=== PATIENT | female | born 1940 | race Caucasian/White ===

== ENCOUNTER 2018-01-23 07:25 | Day surgery (SDC) | payer OTHER ==
--- NOTE | 2018-01-20 11:49 | RAD REPORT ---
EXAM DESCRIPTION: RAD - Chest Single View - 01/20/2018 11:44 am CLINICAL HISTORY: Coronary artery disease Chest pain. COMPARISON: Chest Single View dated 02/18/2017; Chest Pa And Lat (2 Views) dated 11/21/2015 FINDINGS: Portable technique limits examination quality. The lungs are grossly clear. The heart is normal in size. No displaced fractures. IMPRESSION: No acute intrathoracic process suspected.
[2018-01-20 12:07] LABS: Absolute Lymphocytes (CBC) 1.5 K/uL (0.7-4.9); Absolute Monocytes 0.6 K/uL (0.1-1.3); Absolute Neutrophil 5.5 K/uL (1.8-8.0); Basophils % 1.1 % (0-1.3); Eosinophils % 5.6 % (0-4.4); Hematocrit 41.2 % (36.0-45.0); Lymphocytes % 18.7 % (15.3-44.8); MCH 30.3 pg (27.0-35.0); MCV 92.2 fL (80-100); MPV 9.2 fL (7.6-11.3); Monocytes % 6.8 % (3.3-12.3); RBC Red Blood Cell Count 4.47 M/uL (3.86-4.86)
[2018-01-20 12:16] LABS: Protime INR 1.01
[2018-01-20 12:32] LABS: Potassium 3.6 mmol/L (3.5-5.1)
[~2018-01-23 07:25] MED LIST: HEPA 1000U/500MLS 2,000 UNIT/1,000 ML BAG IV ONE; LIDOCAINE 1% 20 ML MDV ONE
--- OUTSIDE RECORDS SUMMARY | 2018-01-23 07:26 | XMS REPORT ---
:1940 Author Organization [employer] Care Team Providers Name Role Phone Jaeger, Dora Provider Role Unavailable Allergies, Adverse Reactions, Alerts Substance Reaction Event Type Lisinopril cough, fatique Drug Allergy Problems Problem Type Condition Code Onset Dates Condition Status Assessment Medicare annual wellness visit, Z00.00 Active initial Problem Obesity, unspecified E66.9 Active Assessment Encounter for gynecological Z01.419 Active examination Problem History of gout Z87.39 Active Problem Hyperlipidemia E78.5 Active Problem Pityriasis rosea L42 Active Problem Stented coronary artery Z95.5 Active Problem CAD (coronary artery disease), I25.10 Active kaw coronary artery Problem Allergic rhinitis J30.9 Active Problem HTN (hypertension) I10 Active Medications Medication Code Code Instructions Start End Status Dosage System Date Date Toprol XL [facility] 08352910174 100 MG Orally Active 1 tablet Once a day Norvasc [facility] 31889787418 5 MG Orally Active 1 tablet Once a day Zyrtec Allergy ND 65860008800 10 MG Orally October Active 1 tablet Once a day 2017 Triamcinolone [facility] 34340483535 0.1 % October Active 1 application Acetonide Externally 11, to affected Twice a day 2017 area Xanax ND 31389335349 0.25 MG Orally Active 1 tablet Twice a day Tamiflu ND 74352460247 75 MG Orally Aug 29, Active 1 capsule one tab once a 2018 day Plavix ND 53511434007 75 MG Orally Active 1 tablet Once a day Lipitor ND 51479810154 80 MG Orally Active 1 tablet Once a day Results No Known Results Summary Purpose [employer] Submission
[2018-01-23] MEDS ORDERED: NA CHLORIDE 0.9% 500 ML ONE (08:18)
[2018-01-23] MEDS ORDERED: HEPARIN 5000 UNIT/ML 1 ML VIAL ONE (08:29)
[2018-01-23] MEDS ORDERED: NICARDIPINE HCL 25 MG/10 ML IV ONE (08:29)
[2018-01-23] MEDS ORDERED: ATROPINE SULF 1 MG/10 ML SYR IV ONE (08:30)
[2018-01-23] MEDS ORDERED: NITROGLYCERIN/D5W 25 MG/250 ML BTL IV ONE (08:30)
[2018-01-23] MEDS ORDERED: MIDAZOLAM HCL 2 MG/2 ML INJ ONE ×2 (08:30→08:52)
[2018-01-23] MEDS ORDERED: NA CHLORIDE 0.9% 0 ML ONE (08:30)
[2018-01-23] MEDS ORDERED: FENTANYL CITR 100 MCG/2 ML ONE (08:31)
--- NOTE | 2018-01-23 19:59 | OP ---
Surgeon: Eduardo Hsieh MD Primary Care Physician: Dora Jaeger D.O. Procedure: Left heart catheterization and left ventricular angiography. Findings: The patient's coronary arteries are free of any stenosis. She has minor coronary plaque. She has a mid LAD stent placed in 2005 that is widely patent. Her ejection fraction is normal. All of her pressures were normal. There is no wall motion abnormality. End-diastolic pressure was 1. Procedure In Detail: The patient had symptoms consistent with CAD, history of a stent, and we were c onsidering that stress testing was misleading us and she really had a new stenosis. She was brought to the cardiac clinical laboratory technologist in a fasting state, sedated with Versed and fentanyl, and prepared and draped in the usual sterile fashion. Right radial approach was used. A 1% lidocaine was used to anestheti ze the tissues around the right radial artery. The artery was entered using a 21-gauge needle. A 0. 021 inch diameter guidewire was used to cannulate the artery. Modified Seldinger technique allowed u s to put a 6-[place] radial sheath in place. It was flushed and the radial cocktail was given consist ing of nicardipine, heparin, and nitroglycerin. We used a Terumo TIG catheter and a [place] [employer] Artimi rad ius J-tip Glidewire to guide it into the ascending aorta. We used the same TIG catheter to angiogram the right and left coronaries in multiple views and left ventricle. At the end of the procedure, th e catheter was withdrawn over a J-wire. The sheath was flushed, removed, and the arteriotomy closed using a TR band. No complications from the procedure. Estimated blood loss 5 cc. physical therapist assistant, Eda Pagan, and our plan is to initiate cardiac rehab for intense physical therapy to re-establi sh her exertional tolerance. SH/MODL Voice ID: [id number] Report ID: [id number]
== END 2018-01-23 12:11 | disposition home or self-care (01) ==
LOC: CCL 07:25
PROVIDERS: ATTEND Internal Medicine
DX: I25.10 Atherosclerotic heart disease of native coronary artery without angina pectoris (principal); I10 Essential (primary) hypertension; E78.2 Mixed hyperlipidemia; Z95.5 Presence of coronary angioplasty implant and graft; Z88.8 Allergy status to other drugs, medicaments and biological substances
CPT/HCPCS: 36415; 71045; 80048; 85025; 85610; 85730; 93458; C1893; J1644; J2250; J3010; J0583

== ENCOUNTER 2020-10-30 10:52 | Emergency (ER) | payer OTHER ==
--- OUTSIDE RECORDS SUMMARY | 2020-10-30 10:55 | XMS REPORT | Continuity of Care Document ---
:1940 Author Organization [facility] Address [address] [place] [address] Care Team Providers Name Role Phone Unavailable Unavailable Unavailable Problems Condition Condition Condition Status Onset Resolution Last Treating Co mments Source Name Details Category Date Date Treatment Clinician Date Hyperlipid Hyperlipid Problem Active [facility] Pityriasis Pityriasis Problem Active [facility]a [facility] Stented Stented Problem Active [facility] CAD CAD Problem Active [facility] (coronary (coronary [facility] - artery artery Memoria disease), disease), [place] [facility] coronary ent artery artery Clinics Allergic Allergic Problem Active [facility] rhinitis [facility]initis [facility] HTN HTN Problem Active [facility] (hypertens (hypertens Janice kes - ion) ion) [facility] Obesity, Obesity, Problem Active [facility] unspecifie unspecifie Janice kes - d d [facility] History of History of Problem Active [facility] gout gout [facility] Allergies, Adverse Reactions, Alerts Allergy Allergy Status Severity Reaction(s) Onset Inactive Treating Comm ents Source Name Type Date Date Clinician Lisinopr Adverse Active cough[facility] Reaction fatique [facility] Medications Ordered Filled Start Stop Current Ordering Indication Dosage Frequency Signature Comments Components Source Medication Medication Date Date Medication? Clinician (SIG) Name Name Triamcinolo Triamcinolo Yes Na Jaeger [address] ne ne applicatio [facility] Acetonide Acetonide n to Mem[facility] ia affected l area [facility] Procedures This patient has no known procedures. Encounters Start End Encounter Admission Attending Care Care Encounter Source Date/Time Date/Time Type Type Clinicians Facility Department ID 2018-09-19 2018-09-19 Outpatient Rosy Gallegost [id number] [facility] [address] 09:55[facility]00 09:55:00 t [facility]ple [facility] 2017-11-30 2017-11-30 Outpatient Rosy Wilson [id number] [facility] [address] 09[facility]00[facility]00 09:00:00 Couple [facility] Clinics Results This patient has no known results.
[2020-10-30 11:14] LABS: Urine Blood Negative (Negative); Urine Glucose Negative (Negative); Urine Protein 1+ (Negative); Urine Specific Gravity 1.025 (1.005-1.030)
[2020-10-30 11:39] LABS: Calcium Oxalate Crystals- Ur PRESENT (NONE SEEN); Urine Bacteria <20 /HPF (<20); Urine RBC <5 /HPF (NONE SEEN)
[2020-10-30] MEDS ORDERED: TRAMADOL HCL 50 MG TAB ONE (11:46)
[2020-10-30] MEDS ORDERED: ONDANSETRON 4 MG (ODT) TAB ONE (12:02)
--- NOTE | 2020-10-30 12:12 | RAD REPORT ---
EXAM DESCRIPTION: CT - Stone Protocol - 10/30/2020 11:34 am CLINICAL HISTORY: Abdominal pain./back pain COMPARISON: 2017 TECHNIQUE: Computed axial tomography of the abdomen pelvis was obtained without oral or IV contrast. Lack of IV and oral contrast limits evaluation of solid organs, bowel, and vessels. Coronal reformat val images were obtained and reviewed. All CT scans are performed using dose optimization technique as appropriate and may include automated exposure control or mA/KV adjustment according to patient size. FINDINGS: A renal calculus is not seen. An ureteral calculus is not noted. A bladder calculus is not present. Small right renal cyst The liver, spleen, pancreas and adrenals appear grossly normal Small polyp versus gallstone There is no evidence of diverticulitis. The appendix appears normal. Hysterectomy. 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
--- NOTE | 2020-10-30 13:05 | ER ---
Nurse's Notes [facility] Name: Dhara Miranda Age: 80 yrs Sex: Female : 1940 Arrival Date: 10/30/2020 Time: 10:55 Bed 15 Private MD: Dora Jaeger Diagnosis: Sciatica, right side Presentation: 10/30 11:17 Chief complaint: Patient states: R mid back/flank pain started this morning. Pain is ca1 worse with ambulation and repositioning. Pain is sharp and non-radiating. Coronavirus screen: Client denies travel out of the [place] in the last 14 days. At this time, the client does not indicate any symptoms associated with coronavirus-19. Ebola Screen: Patient negative for fever greater than or equal to 101.5 degrees Fahrenheit, and additional compatible Ebola Virus Disease symptoms Patient denies exposure to infectious person. Patient denies travel to an Ebola-affected area in the 21 days before illness onset. No symptoms or risks identified at this time. Initial Sepsis Screen: Does the patient meet any 2 criteria? No. Patient's initial sepsis screen is negative. Does the patient have a suspected source of infection? No. Patient's initial sepsis screen is negative. Risk Assessment: Do you want to hurt yourself or someone else? Patient reports no desire to harm self or others. Onset of symptoms was October 30, 2020. 11:17 Method Of Arrival: Wheelchair ca1 11:17 Acuity: ANN 3 ca1 Triage Assessment: 13:18 General: Appears in no apparent distress. Behavior is calm, cooperative, appropriate bw for age. Historical: - Allergies: 11:22 Lisinopril; ca1 - PMHx: 11:22 cardiac stent; Hyperlipidemia; Hypertension; Myocardial infarction; ca1 - PSHx: 11:22 Hysterectomy; ca1 - Immunization history:: Adult Immunizations up to date. - Social history:: Smoking status: Patient denies any tobacco usage or history of. Screenin: Abuse screen: Denies threats or abuse. Nutritional screening: No deficits noted. bw Tuberculosis screening: No symptoms or risk factors identified. Fall Risk None identified. Assessment: 11:29 Reassessment: Patient appears in no apparent distress at this time. Patient and/or bw family updated on plan of care and expected duration. Pain level reassessed. Patient is alert, oriented x 3, equal unlabored respirations, skin warm/dry/pink. Pain: Complains of pain in pain has been in lower back but denies pain at this time. 12:47 Reassessment: Patient appears in no apparent distress at this time. Patient and/or bw family updated on plan of care and expected duration. Pain level reassessed. Patient is alert, oriented x 3, equal unlabored respirations, skin warm/dry/pink. Vital Signs: 11:17 BP 137 / 78; Pulse 72; Resp 16 S; Temp 97.6(TE); Pulse Ox 100% on R/A; Weight 97.52 kg ca1 (R); Height 5 ft. 5 in. (165.10 cm) (R); Pain 8/10; 12:47 BP 116 / 92; Pulse 51; Resp 18; Pulse Ox 93% on R/A; bw 11:17 Body Mass Index 35.78 (97.52 kg, 165.10 cm) ca1 ED Course: 10:55 Patient arrived in ED. rg4 10:55 Dora Jaeger MD is Private Physician. rg4 11:04 [facility]. cp 11:04 Isaiah De Dios MD is Attending Physician. cp 11:13 Estela Vernon RN is Primary Nurse. bw 11:16 Urine collected: clean catch specimen, cloudy. mh5 11:17 Patient has correct armband on for positive identification. Placed in gown. Bed in low mh5 position. Call light in reach. Side rails up X 1. Warm blanket given. athletic monitor on. Pulse ox on. NIBP on. 11:22 Triage completed. ca1 11:22 Urine Microscopic Only Sent. mh5 11:22 Arm band placed on right wrist. ca1 11:29 No provider procedures requiring assistance completed. Patient did not have IV access bw during this emergency room visit. 11:33 CT Stone Protocol In Process Unspecified. EDMS Administered Medications: 12:05 Drug: UltRAM 50 mg Route: PO; bw 13:19 Follow up: Response: No adverse reaction bw 12:05 Drug: Zofran (Ondansetron) 4 mg Route: PO; bw 13:18 Follow up: Response: No adverse reaction; Nausea is decreased bw Outcome: 13:04 Discharge ordered by . cp 13:18 Discharged to home via wheelchair. 13:18 Condition: stable 13:18 Discharge instructions given to patient, family. 13:37 Patient left the ED. bw Addendum: 11/11/2020 11:07 Addendum: Culture Results: Positive urine culture. Patient was not prescribed a a5 antibiotics at discharge. Report given to GERMAINE for further evaluation and then to specimen technician for follow up with patient. Phone call Attempt #1 left voice mail. Signatures: Dispatcher [employer] Chelita Ellington RN RN aa5 Keven Spangler PA PA cp Garcia, Rubi rg4 Vandana Trinidad 5 Mayra Medley RN RN [facility] Estela Vernon RN RN
--- NOTE | 2020-10-30 13:05 | EDPHYS ---
Physician Documentation [facility] Name: Dhara Miranda Age: 80 yrs Sex: Female : 1940 Arrival Date: 10/30/2020 Time: 10:55 Bed 15 Private MD: Dora Jaeger ED Physician Isaiah De Dios HPI: 10/30 11:30 This 80 yrs old Female presents to ER via Wheelchair with complaints of Low cp Back Pain. 11:30 The patient presents with pain that is acute, with no known mechanism of injury. cp Historical: - Allergies: 11:22 Lisinopril; ca1 - PMHx: 11:22 cardiac stent; Hyperlipidemia; Hypertension; Myocardial infarction; ca1 - PSHx: 11:22 Hysterectomy; ca1 - Immunization history:: Adult Immunizations up to date. - Social history:: Smoking status: Patient denies any tobacco usage or history of. ROS: 11:35 Constitutional: Negative for body aches, chills, fever, poor PO intake. cp 11:35 Eyes: Negative for injury, pain, redness, and discharge. cp 11:35 Cardiovascular: Negative for chest pain. 11:35 Respiratory: Negative for cough, shortness of breath, wheezing. 11:35 Abdomen/GI: Negative for abdominal pain, nausea, vomiting, and diarrhea. 11:35 Back: Positive for pain at rest, pain with movement, of the right upper buttock. 11:35 : Negative for pelvic pain, flank pain. 11:35 Skin: Negative for rash. 11:35 Neuro: Negative for dizziness, numbness, tingling, weakness. 11:35 All other systems are negative. Exam: 12:00 ECG was reviewed by the Attending Physician. cp 12:05 Constitutional: The patient appears in no acute distress, alert, awake, non-toxic, well cp developed, well nourished, obese. 12:05 Head/Face: Normocephalic, atraumatic. cp 12:05 Abdomen/GI: Inspection: abdomen appears normal, Palpation: abdomen is soft and non-tender, in all quadrants. 12:05 Back: pain, that is mild, of the right upper buttock. Vital Signs: 11:17 BP 137 / 78; Pulse 72; Resp 16 S; Temp 97.6(TE); Pulse Ox 100% on R/A; Weight 97.52 kg ca1 (R); Height 5 ft. 5 in. (165.10 cm) (R); Pain 8/10; 12:47 BP 116 / 92; Pulse 51; Resp 18; Pulse Ox 93% on R/A; bw 11:17 Body Mass Index 35.78 (97.52 kg, 165.10 cm) ca1 MDM: 11:07 Patient medically screened. cp 13:04 Data reviewed: vital signs, nurses notes, lab test result(s), radiologic studies, CT cp scan. 10/30 11:13 Order name: Urine Dipstick-Ancillary; Complete Time: 11:18 EDMS 10/30 12:07 Interpretation: Normal except: UPROT 1+; UESTR Trace. cp 10/30 11:19 Order name: Urine Microscopic Only; Complete Time: 12:07 cp 10/30 12:07 Interpretation: Normal except: SQEPI 10-20. cp 10/30 11:19 Order name: CT Stone Protocol; Complete Time: 12:39 cp 10/30 11:40 Order name: Urine Culture EDMS EC:00 Rate is 61 beats/min. Rhythm is regular. [place] interval is normal. QRS interval is normal. cp QT interval is normal. T waves are Inverted in lead aVR. Interpreted by me. Reviewed by me. Administered Medications: 12:05 Drug: UltRAM 50 mg Route: PO; bw 13:19 Follow up: Response: No adverse reaction bw 12:05 Drug: Zofran (Ondansetron) 4 mg Route: PO; bw 13:18 Follow up: Response: No adverse reaction; Nausea is decreased bw Disposition: 13:40 Co-signature as Attending Physician, Isaiah De Dios MD I agree with the assessment and kdr plan of care. Disposition: 10/30/20 13:04 Discharged to Home. Impression: Sciatica, right side. - Condition is Stable. - Discharge Instructions: Sciatica, Back Exercises. - Prescriptions for Ultracet 37.5- 325 mg Oral Tablet - take 1 tablet by ORAL route every 8-12 hours - for up to 5 days; do not exceed 8 tablets per day.; 20 tablet. Medrol (Wilder) 4 mg Oral Tablets, Dose Pack - take 1 tablet by ORAL route as directed - follow package instructions; 1 packet. - Medication Reconciliation Form, Thank You Letter, Antibiotic Education, Prescription Opioid Use form. - Follow up: Private Physician; When: 1 - 2 days; Reason: Recheck today's complaints. - Problem is new. - Symptoms have improved. Signatures: Dispatcher [employer] EDMS Isaiah De Dios MD MD [facility] Keven Spangler PA PA cp Mayra Medley RN RN [facility] Estela Vernon RN RN Corrections: (The following items were deleted from the chart) 13:37 13:04 10/30/2020 13:04 Discharged to Home. Impression: Sciatica, right side. Condition bw is Stable. Forms are Medication Reconciliation Form, Thank You Letter, Antibiotic Education, Prescription Opioid Use. Follow up: Private Physician; When: 1 - 2 days; Reason: Recheck today's complaints. Problem is new. Symptoms have improved. cp
[2020-10-31 03:47] VITALS: BP 116/92; O2SAT 93
== END 2020-10-30 13:37 | disposition home or self-care (01) ==
LOC: ER 10:52
DX: M54.31 Sciatica, right side (principal); I10 Essential (primary) hypertension; Z95.818 Presence of other cardiac implants and grafts; Z88.8 Allergy status to other drugs, medicaments and biological substances
CPT/HCPCS: 74176; 76377; 81003; 81015; 87077; 87086; 87088; 87186; 93005; 99284

== ENCOUNTER 2022-08-20 08:35 | Inpatient (IN) | payer OTHER ==
--- OUTSIDE RECORDS SUMMARY | 2022-08-20 08:39 | XMS REPORT | Continuity of Care Document ---
:1940 Author Organization [facility] Address [address] [place] [address] Care Team Providers Name Role Phone Dora Jaeger Attending Clinician Unavailable Problems Condition Condition Condition Status Onset Resolution Last Treating Co mments Source Name Details Category Date Date Treatment Clinician Date History of History of Problem Active C ommon gout gout [facility] Hyperlipid Hyperlipid Problem Active C ommon emia emia [facility] Pityriasis Pityriasis Problem Active C ommon rosea rosea [facility] Stented Stented Problem Active Common coronary coronary [facility] artery artery [facility] CAD CAD Problem Active Common (coronary (coronary Spir it artery artery [facility] disease), disease), [facility] coronary coronary [place] artery artery [place] Allergic Allergic Problem Active Commo n rhinitis rhinitis [facility] HTN HTN Problem Active Common (hypertens (hypertens Sp negriot ion) ion) [facility] Obesity, Obesity, Problem Active Commo n unspecifie unspecifie Sp negrito d d [facility] Allergies, Adverse Reactions, Alerts Allergy Allergy Status Severity Reaction(s) Onset Inactive Treating Comm ents Source Name Type Date Date Clinician Lisinopr Adverse Active cough, Common il Reaction fatique [facility] Medications Ordered Filled Start Stop Current Ordering Indication Dosage Frequency Signature Comments Components Source Medication Medication Date Date Medication? Clinician (SIG) Name Name Triamcinolo Triamcinolo Yes Dora Jaeger 1 Common ne ne applicatio Spirit Acetonide Acetonide n to - [facility] Procedures This patient has no known procedures. Encounters Start End Encounter Admission Attending Care Care Encounter Source Date/Time Date/Time Type Type Clinicians Facility Department ID 2021-08-26 [facility] [id number] Common 12:23:30 [id number] [facility] 2018-09-19 2018-09-19 Outpatient Rosy Wilson [id number] Common 09:55:00 09:55:00 t [employer] [address] [facility] 2017-11-30 2017-11-30 Outpatient Rosy Wilson [id number] Common 09:00:00 09:00:00 t [employer] [address] [facility] Results This patient has no known results.
[2022-08-20] MEDS ORDERED: Ringers Lactate 1,000 ML IV ONE (09:17)
--- NOTE | 2022-08-20 09:27 | RAD REPORT ---
EXAM DESCRIPTION: CT - Head Brain Wo Cont - 08/20/2022 9:10 am CLINICAL HISTORY: Syncope COMPARISON: 2016 TECHNIQUE: Computed axial tomography of the head was obtained. IV contrast was not requested. All CT scans are performed using dose optimization technique as appropriate and may include automated exposure control or mA/KV adjustment according to patient size. FINDINGS: An intracranial bleed is not seen . The ventricles are normal in caliber. Small low-density area right caudate probably an old lacunar infarction. No extra-axial fluid collection is noted. Fluid within the sinuses/ mastoids is not seen. IMPRESSION: No acute intracranial abnormality is seen. If patient's symptoms persist MRI of the bra in would be recommended.
--- NOTE | 2022-08-20 09:39 | RAD REPORT ---
EXAM DESCRIPTION: CT - Pelvis Wo Cont - 08/20/2022 9:21 am CLINICAL HISTORY: Pelvic pain status post fall COMPARISON: None. TECHNIQUE: Computed axial tomography of the pelvis was obtained. Coronal and sagittal reconstruction performed All CT scans are performed using dose optimization technique as appropriate and may include automated exposure control or mA/KV adjustment according to patient size. FINDINGS: No fracture or dislocation is seen. Moderate osteoarthritis right hip. Mild osteoarthritis left hip. Muscles are normal size and density. A subcutaneous contusion is not noted No significant joint effusion IMPRESSION: No fracture seen If patient continues to have symptoms to suggest an occult fracture MRI would be recommended
[2022-08-20 09:43] LABS: Protime INR 1.12
--- NOTE | 2022-08-20 09:49 | RAD REPORT ---
EXAM DESCRIPTION: Joanne Single View08/20/2022 9:35 am CLINICAL HISTORY: Hypertensive/bradycardia COMPARISON: 2016 FINDINGS: The lungs appear clear of acute infiltrate. The heart is borderline enlarged IMPRESSION: No acute abnormalities displayed
[2022-08-20 09:59] LABS: Albumin 2.6 g/dL (3.4-5.0); Bilirubin Direct 0.1 mg/dL (0-0.2); Bilirubin Total 0.3 mg/dL (0.2-1.0); Magnesium 2.2 mg/dL (1.6-2.4); Potassium 4.5 mmol/L (3.5-5.1); Protein, Total 5.4 g/dL (6.4-8.2); Troponin High Sensitivity 12.3 pg/mL (<58.9)
[2022-08-20 10:20] LABS: SARS-COV-2 RT PCR NEGATIVE (NEGATIVE)
[2022-08-20 10:30] LABS: Absolute Lymphocytes (CBC) 1.7 K/uL (0.7-4.9); Hematocrit 36.7 % (36.0-45.0); Lymphocytes % 13.1 % (15.3-44.8); MCV 93.5 fL (80-100); MPV 8.9 fL (7.6-11.3); RBC Red Blood Cell Count 3.92 M/uL (3.86-4.86)
[2022-08-20 10:56] LABS: Urine Blood Negative (Negative); Urine Glucose Negative (Negative); Urine Protein Negative (Negative); Urine Specific Gravity <=1.005 (1.005-1.030); Urine pH 5.5 (5.0-7.0)
[2022-08-20 11:07] LABS: Urine Bacteria <20 /HPF (<20); Urine RBC <5 /HPF (None Seen)
[2022-08-20] MEDS ORDERED: FENTANYL CITR 100 MCG/2 ML ONE (11:35)
[2022-08-20] MEDS ORDERED: NA CHLORIDE 0.9% 1,000 ML ONE (11:43)
--- NOTE | 2022-08-20 11:49 | ER ---
Nurse's Notes [facility] Name: Dhara Miranda Age: 82 yrs Sex: Female : 1940 Arrival Date: 08/20/2022 Time: 08:39 Bed 4 Private MD: Diagnosis: Syncope Near;Acute Kidney Injury;Dehydration;Hypocalcemia Presentation: 08/20 09:04 Chief complaint: Patient states: she has been having issues with sciatica for a few ap3 weeks now, and this morning the pain was so bad that when she went to get up she just "fell out". EMS states that when they arrived the patient was hypotensive and bradycardic. EMS states their initial vials were heart rate of 42, blood pressure of 83/58, and the patient was 88% on room air. EMS placed the patient on 2 liters nasal canula, started an IV in the patients right wrist, and administered 1mg atropine as well as a liter of NS. Coronavirus screen: At this time, the client does not indicate any symptoms associated with coronavirus-19. Ebola Screen: No symptoms or risks identified at this time. Initial Sepsis Screen: Does the patient meet any 2 criteria? Mean Arterial Pressure (MAP) < 65. Does the patient have a suspected source of infection? No. Patient's initial sepsis screen is negative. Risk Assessment: Do you want to hurt yourself or someone else? Patient reports no desire to harm self or others. Onset of symptoms was August 20, 2022. 09:04 Method Of Arrival: EMS: [facility] ap3 09:04 Acuity: ANN 2 ap3 Triage Assessment: 09:09 General: Appears comfortable, obese, Behavior is calm, cooperative. Pain: Complains of ap3 pain in right leg and right hip. Neuro: Level of Consciousness is awake, obeys commands, Oriented to person, place, time, situation, Speech is normal. Cardiovascular: Patient's skin is warm and dry. Respiratory: Airway is patent Respiratory effort is even, unlabored, Respiratory pattern is regular, symmetrical. Historical: - Allergies: 09:08 Lisinopril; ap3 - PMHx: 09:08 cardiac stent; Hyperlipidemia; Hypertension; Myocardial infarction; ap3 - Immunization history:: Client reports having NOT received the Covid vaccine. Flu vaccine is not up to date. - Social history:: Smoking status: Patient denies any tobacco usage or history of. Screenin:09 [facility] ED Fall Risk Assessment (Adult) History of falling in the last 3 months, ap3 including since admission Yes- fall prone (multiple falls) (3 pts) Confusion or Disorientation No (0 pts) Intoxicated or Sedated No (0 pts) Impaired Gait Yes (1 pt) Mobility Assist Device Used Yes (1 pt) Altered Elimination No (0 pt). Abuse screen: Denies threats or abuse. Nutritional screening: No deficits noted. Tuberculosis screening: No symptoms or risk factors identified. Assessment: 11:38 Pain: Complains of pain in right hip Pain currently is 10 out of 10 on a pain scale. ap3 12:43 Reassessment: Nurse attempted report. was informed they would call me back. ap3 12:52 Reassessment: report called to ALISSON Roach. ap3 Vital Signs: 09:03 BP 98 / 53 (man/); Pulse 52; Pulse Ox 100% on 2 lpm NC; Weight 99.79 kg; Height 5 ft. 5 ap3 in. (165.10 cm); 09:03 Temp 98.6(O); ss 10:05 BP 118 / 58; Pulse 52; Pulse Ox 98% on 2 lpm NC; ap3 11:28 Resp 19; ap3 11:38 BP 124 / 84; Pulse 52; Resp 19; Pulse Ox 100% ; ap3 09:03 Body Mass Index 36.61 (99.79 kg, 165.10 cm) ap3 ED Course: 08:39 Patient arrived in ED. eb 08:45 Raj Perez DO is Attending Physician. ms3 08:45 Dieter Mckinney PA is PHCP. ms3 08:52 Rere Landry, ALISSON is Primary Nurse. ap3 09:08 Triage completed. ap3 09:10 Arm band placed on left wrist. ap3 09:10 Patient has correct armband on for positive identification. Bed in low position. Call ap3 light in reach. Side rails up X2. Adult w/ patient. traffic monitor specialist on. Pulse ox on. NIBP on. Door closed. Noise minimized. 09:12 CT Head Brain wo Cont In Process Unspecified. EDMS 09:[address] In Process Unspecified. EDMS 09:36 Inserted saline lock: 20 gauge in left antecubital area, using aseptic technique. Blood ap3 collected. 09:37 XRAY Chest (1 view) In Process Unspecified. EDMS 10:54 Urine collected: clean catch specimen, clear, Amount Voided: 650mL. ss 11:47 Simone Verma MD is Hospitalizing Provider. kaya 12:56 No provider procedures requiring assistance completed. Patient admitted, IV remains in ap3 place. Administered Medications: 09:36 Drug: Lactated Ringers Solution 1000 ml Route: IV; Rate: 1000 ml/hr; Site: left ap3 antecubital; 11:38 Follow up: IV Status: Completed infusion; IV Intake: 1000ml ap3 11:38 Drug: fentaNYL (PF) 25 mcg Route: IVP; Site: left antecubital; ap3 12:36 Follow up: Response: No adverse reaction; Pain is decreased ap3 Medication: 09:10 VIS not applicable for this client. ap3 Intake: 11:38 IV: 1000ml; Total: 1000ml. ap3 Outcome: 11:47 Decision to Hospitalize by Provider. kaya 12:56 Admitted to Tele accompanied by tech, room 425, with oxygen, with chart, Report called ap3 to ALISSON Roach 12:56 Condition: good 12:56 Instructed on the need for admit. 13:19 Patient left the ED. ll1 Signatures: Dispatcher [employer] EDMS Dieter Mckinney PA PA jmm Smirch, Shelby, RN RN ss Rere Landry RN RN ap3 Marium Smith Lynsay, RN RN ll1 Raj Perez DO DO ms3
--- NOTE | 2022-08-20 11:49 | EDPHYS ---
Physician Documentation [facility] Name: Dhara Miranda Age: 82 yrs Sex: Female : 1940 Arrival Date: 08/20/2022 Time: 08:39 Bed 4 Private MD: ED Physician Raj Perez HPI: 08/20 10:18 This 82 yrs old Female presents to ER via EMS with complaints of Syncope. jmm 10:18 Onset: The symptoms/episode began/occurred acutely, this morning. Duration: This was a jmm single episode, that is still ongoing, but improving. Is an 82-year-old female with history of coronary artery disease, hyperlipidemia, hypertension, the presents emerged department with complaints of right hip pain, syncope which occurred this morning. Patient states she has had a decreased appetite for the past few days and has not eaten much. Patient states that she has been urgent care for ongoing pain to her hip as well. Denies fever or chills. Patient states she fell and was unable to get up due to weakness. Denies injuring her head. Historical: - Allergies: 09:08 Lisinopril; ap3 - PMHx: 09:08 cardiac stent; Hyperlipidemia; Hypertension; Myocardial infarction; ap3 - Immunization history:: Client reports having NOT received the Covid vaccine. Flu vaccine is not up to date. - Social history:: Smoking status: Patient denies any tobacco usage or history of. ROS: 10:18 Constitutional: Negative for fever, chills, and weight loss, Cardiovascular: Negative jmm for chest pain, palpitations, and edema, Respiratory: Negative for shortness of breath, cough, wheezing, and pleuritic chest pain. 10:18 MS/extremity: Positive for pain. 10:18 All other systems are negative. Exam: 09:10 ECG was reviewed by the Attending Physician. jmm 10:18 Constitutional: This is a well developed, well nourished patient who is awake, alert, jmm and in no acute distress. Head/Face: atraumatic. Eyes: EOMI, no conjunctival erythema appreciated ENT: Moist Mucus Membranes Neck: Trachea midline, Supple Chest/axilla: Normal chest wall appearance and motion. Cardiovascular: Regular rate and rhythm. No edema appreciated Respiratory: Normal respirations, no respiratory distress appreciated Abdomen/GI: Non distended Back: Normal ROM Skin: General appearance color normal MS/ Extremity: Moves all extremities, no obvious deformities appreciated, no edema noted to the lower extremities Neuro: Awake and alert Psych: Behavior is normal, Mood is normal, Patient is cooperative and pleasant Vital Signs: 09:03 BP 98 / 53 (man/); Pulse 52; Pulse Ox 100% on 2 lpm NC; Weight 99.79 kg; Height 5 ft. 5 ap3 in. (165.10 cm); 09:03 Temp 98.6(O); ss 10:05 BP 118 / 58; Pulse 52; Pulse Ox 98% on 2 lpm NC; ap3 11:28 Resp 19; ap3 11:38 BP 124 / 84; Pulse 52; Resp 19; Pulse Ox 100% ; ap3 09:03 Body Mass Index 36.61 (99.79 kg, 165.10 cm) ap3 MDM: 08:45 Patient medically screened. ms3 11:32 Data reviewed: vital signs, nurses notes. Consideration of Admission/Observation [facility] Patient was admitted/placed on observation. Management of patient was discussed with the following: Hospitalist: Sandip Jeter PA-C. I considered the following discharge prescriptions or medication management in the emergency department Medications were administered in the Emergency Department. See 08:48 Order name: Basic Metabolic Panel; Complete Time: 10:38 [facility] 08/20 08:48 Order name: CBC with Diff; Complete Time: 10:38 [facility] 08/20 08:48 Order name: LFT's; Complete Time: 10:38 [facility] 08/20 08:48 Order name: Magnesium; Complete Time: 10:38 [facility] 08/20 08:48 Order name: NT PRO-BNP; Complete Time: 10:38 [facility] 08/20 08:48 Order name: PT-INR; Complete Time: 09:49 [facility] 08/20 08:48 Order name: Troponin HS; Complete Time: 10:38 [facility] 08/20 08:48 Order name: XRAY Chest (1 view); Complete Time: 09:49 [facility] 08/20 08:48 Order name: CT Head Brain wo Cont; Complete Time: 09:49 [facility] 08/20 08:48 Order name: COVID-19/FLU A+B; Complete Time: 10:38 [facility] 08/20 08:48 Order name: Urine Microscopic Only; Complete Time: 11:12 [facility] 08/20 09:14 Order name: Pelvis Wo Cont CT; Complete Time: 09:49 [facility] 08/20 10:56 Order name: Urine Dipstick-Ancillary; Complete Time: 11:00 [facility] 08/20 08:48 Order name: EKG; Complete Time: 08:48 [facility] 08/20 08:48 Order name: Cardiac monitoring; Complete Time: 08:52 [facility] 08/20 08:48 Order name: EKG - Nurse/Tech; Complete Time: 09:10 [facility] 08/20 08:48 Order name: IV Saline Lock; Complete Time: 09:10 [facility] 08/20 08:48 Order name: Labs collected and sent; Complete Time: 09:36 [facility] 08/20 08:48 Order name: O2 Per Protocol; Complete Time: 08:52 [facility] 08/20 08:48 Order name: O2 Sat Monitoring; Complete Time: 08:52 [facility] 08/20 08:48 Order name: Urine Dipstick-Ancillary (obtain specimen); Complete Time: 10:53 [facility] 08/20 10:54 Order name: Straight Cath; Complete Time: 10:54 ss EC:10 Rate is 61 beats/min. Rhythm is regular. QRS [place] is Normal. AL interval is normal. QRS jmm interval is normal. QT interval is normal. No Q waves. T waves are Normal. No ST changes noted. Reviewed by me. Administered Medications: 09:36 Drug: Lactated Ringers Solution 1000 ml Route: IV; Rate: 1000 ml/hr; Site: left ap3 antecubital; 11:38 Follow up: IV Status: Completed infusion; IV Intake: 1000ml ap3 11:38 Drug: fentaNYL (PF) 25 mcg Route: IVP; Site: left antecubital; ap3 12:36 Follow up: Response: No adverse reaction; Pain is decreased ap3 Disposition: 16:57 Co-signature as Attending Physician, Raj Perez DO I reviewed the patient's care ms3 provided by the Advanced Practice Provider and agree with the diagnosis and treatment plan. Disposition Summary: 08/20/22 11:48 Hospitalization Ordered Hospitalization Status: Observation jmm Provider: Simone Verma Location: Telemetry/MedSur (observation) jmm Condition: Stable jmm Problem: new jmm Symptoms: have improved jmm Bed/Room Type: Standard [facility] Room Assignment: 425(08/20/22 12:31) eb Diagnosis - Syncope Near jmm - Acute Kidney Injury jmm - Dehydration jmm - Hypocalcemia jmm Forms: - Medication Reconciliation Form jmm - SBAR form jmm Signatures: Dispatcher [employer] EDDieter Martinez PA PA Ct Nascimento RN RN ss Rere Landry RN RN ap3 Marium Smith Marcus, DO DO ms3 Sandip Jeter PA PA ej Corrections: (The following items were deleted from the chart) 12: 11:48 kaya osman
[2022-08-20 13:13] VITALS: BMI 36.6
[2022-08-20] MEDS ORDERED: ONDANSETRON 4 MG/2 ML VIAL IV PRN (13:14)
[2022-08-20] MEDS: NA CHLORIDE 0.9% 1,000 ML IV SCH ×2 (13:14→23:19)
[2022-08-20] MEDS: LIDOCAINE 4% PATCH TOP SCH (13:28)
--- NOTE | 2022-08-20 13:34 | P.HP ---
Certification for Inpatient Patient admitted to: Inpatient With expected LOS: <2 Midnights Patient will require the following post-hospital care: None Practitioner: I am a practitioner with admitting privileges, knowledge of patient current condition, hospital course, and medical plan of care. Services: Services provided to patient in accordance with Admission requirements found in Title 42 Section 412.3 of the Code of Federal Regulations <Sandip Jeter - Last Filed: 08/20/22 13:28> Patient History Date of Service: 08/20/22 Reason for admission: symptomatic bradycardia History of Present Illness: Ms. Miranda is an 82 yo F with history of CAD (s/p cardiac stents x2), HTN, and HLD who presents after near syncopal episode. Per 's report, patient has been having sciatic pain for the last 3 weeks. She has been experiencing severe pain on her right side. She went to urgent care twice and was prescribed gabapentin and tizanidine. This morning, when she was getting out of bed to go to the restroom, she slid to the floor. reports she did not pass out and was coherent the entire time but she was too weak to stand. When EMS arrived, vitals were 83/58, 42bpm, and sats 88% on RA. She received a fluid bolus, 1mg of atropine, and was placed on nasal cannula. Her chief complaint is pain. Vital signs now stable, patient is oriented. Bradycardia may be related to tizanidine use in conjunction with her home metoprolol dose. She last saw her waste water worker 6 months ago, but does not have a PCP. At baseline she uses a walker. reports she has been more weak. He reports she has a poor appetite and poor fluid intake. BUN 41, Cr 1.76, GFR 29. CXR, CT head and CT pelvis unremarkable. Admitted for symptomatic bradycardia, dehydration, and VIET. - Past Medical/Surgical History Diabetic: No -: Hypertension -: CAD, previous stent x2 -: Hyperlipidemia -: Gout -: Allergic rhinitis -: Former smoker -: Hysterectomy -: cardiac stents x 2 2006 -: bilateral eye lens implant Psychosocial/ Personal History: She is of 52 years, she has 3 children. She previously worked at a clothing store. - Family History Family History: Reviewed- Non-Contributory - Family History Mother Notes: " i am adopted" - Social History Smoking Status: Former smoker Alcohol use: No CD- Drugs: No Caffeine use: Yes Place of Residence: Home <Sandip Jeter - Last Filed: 08/20/22 13:28> Date of Service: 08/20/22 <Simone Verma - Last Filed: 08/20/22 18:17> Allergies lisinopril Allergy (Verified 02/18/17 20:24) COUGH No Known Allergies Allergy (Uncoded 11/21/15 10:51) Unknown Home Medications: RX: Atorvastatin Calcium [Lipitor] 80 mg PO BEDTIME 02/18/17 RX: Losartan Potassium [Cozaar*] 50 mg PO DAILY 02/18/17 RX: Metoprolol Tartrate [Lopressor] 50 mg PO DAILY 02/18/17 Amlodipine [Norvasc] 5 mg PO DAILY #30 tab 02/19/17 RX: Allopurinol 1 tab PO DAILY 08/20/22 RX: Amitriptyline [Elavil*] 1 tab PO DAILY 08/20/22 Review of Systems 10-point ROS is otherwise unremarkable General: Weakness, As per HPI Eyes: Unremarkable ENT: Unremarkable Respiratory: Unremarkable Cardiovascular: Unremarkable Gastrointestinal: Unremarkable Genitourinary: Unremarkable Musculoskeletal: Back Pain, Leg Pain, As per HPI Integumentary: Unremarkable Neurological: Unremarkable Lymphatics: Unremarkable <Sandip Jeter - Last Filed: 08/20/22 13:28> Physical Examination - Physical Exam General: Alert, In no apparent distress, Obese HEENT: Atraumatic, PERRLA, Mucous membr. moist/pink, EOMI, Sclerae nonicteric Neck: Supple, No LAD Respiratory: Clear to auscultation bilaterally, Normal air movement Cardiovascular: Normal S1 S2 (bradycardic) Gastrointestinal: Normal bowel sounds, No tenderness Musculoskeletal: No tenderness Integumentary: No rashes Neurological: Normal speech, Normal affect Lymphatics: No axilla or inguinal lymphadenopathy - Studies Laboratory Data (last 24 hrs) 08/20/22 09:29: PT 12.3, INR 1.12 08/20/22 09:29: WBC 12.80 H, Hgb 12.1, Hct 36.7, Plt Count 271 08/20/22 09:29: Sodium 140, Potassium 4.5, BUN 41 H, Creatinine 1.76 H, Glucose 85, Magnesium 2.2, Total Bilirubin 0.3, AST 22, ALT 30, Alkaline Phosphatase 103 <Sandip Jeter - Last Filed: 08/20/22 13:28> - Studies Laboratory Data (last 24 hrs) 08/20/22 09:29: PT 12.3, INR 1.12 08/20/22 09:29: WBC 12.80 H, Hgb 12.1, Hct 36.7, Plt Count 271 08/20/22 09:29: Sodium 140, Potassium 4.5, BUN 41 H, Creatinine 1.76 H, Glucose 85, Magnesium 2.2, Total Bilirubin 0.3, AST 22, ALT 30, Alkaline Phosphatase 103 <Simone Verma - Last Filed: 08/20/22 18:17> Assessment and Plan - Plan Assessment Symptomatic bradycardia Dehydration Acute renal failure Leukocytosis Sciatica Coronary artery disease Hypertension Hyperlipidemia Plan Symptomatic bradycardia - cardiology consulted - on telemetry, ECHO and carotid doppler pending - hold tizanidine and metoprolol Dehydration - continue IV fluid hydration Acute renal failure - continue IV fluid hydration - monitor BMP closely Leukocytosis - may be related to dehydration, CXR clear, UA negative - continue IV fluids and continue to monitor Sciatica - pain management as needed Weakness - PT consulted Coronary artery disease - resume home medications, except metoprolol Hypertension - resume home medications except metoprolol Hyperlipidemia - resume home medications DVT ppx: Lovenox Full code Discharge Plan: Home Plan to discharge in: 48 Hours - Advance Directives Does patient have a Living Will: No Does patient have a Durable POA for Healthcare: No - Code Status/Comfort Care Code Status Assessed: Yes (full code ) Critical Care: No Time Spent Managing Pts Care (In Minutes): 70 <Sandip Jeter - Last Filed: 08/20/22 13:28> Physician Review: Patient Assessed, Agree with Above Assessment and Plan <Simone Verma - Last Filed: 08/20/22 18:17>
--- NOTE | 2022-08-20 15:30 | RAD REPORT ---
EXAM DESCRIPTION: US - CP - 08/20/2022 3:07 pm CLINICAL HISTORY: near syncope COMPARISON: <Comparisons> TECHNIQUE: Real-time sonographic evaluation of bilateral carotid and vertebral systems was performed . [place] scale and Doppler interrogation were performed with waveform tracing bilaterally. FINDINGS: Normal high resistance waveforms are noted in both external carotid arteries. The common c arotid arteries and internal carotid arteries show normal low resistance waveforms. Bilateral calcified plaquing changes are seen in carotid bulb and internal carotid artery. Left ICA s een is tortuous. Bilateral common carotid artery peak systolic velocity values fall in a normal range and are symmetric. Velocity values are similar to a 2017 study. Bilateral ICA peak systolic velocity values are increased and of increased relative to the 2017 study. The right ICA/ CCA ratio has incre ased to 1.51 with the left ICA/ CCA ratio also elevated to 1.50 in value. These are both an increase over the 2017 study. Antegrade flow seen in both vertebral arteries. Velocity values and ratios were recorded and are retained in the patient's imaging records. Dominant right thyroid nodule is again noted but not fully assessed on this study. IMPRESSION: Significant carotid bulb and internal carotid artery bilateral calcified plaquing change s resulting in elevated velocities and ratios. Findings have progressed since the 2017 study. Stenoses estimated 60-70%.
[2022-08-20] MEDS: FENTANYL CITR 100 MCG/2 ML IV PRN ×2 (17:10→23:15)
[2022-08-20] MEDS: ACETAMINOPHEN 500 MG TAB PO PRN (18:21)
--- NOTE | 2022-08-20 20:29 | CON ---
Date of Consultation: 08/20/2022 Reason For Consultation: Bradycardia. History Of Present Illness: This is an 82-year-old female with history of coronary artery disease st atus post stent placement in the past, dyslipidemia, and hypertension. She apparently has been suffe ring from significant back pain and she has been getting frequent medications. The last one was tiza nidine that she took from the Urgent Care. said in the past 2 days she has been very weak an d sluggish and while walking inside the house, felt very dizzy and slid down to the floor. No loss o f consciousness, but it was reported that the patient was bradycardic and blood pressure was 83/58 an d heart rate of 42. She was brought into the emergency room. After proper hydration, she is feeling better. Past Medical History: As outlined above in HPI. Medications: Refer to reconciliation sheet for detailed list. Allergies: LISINOPRIL. Family History: No premature coronary artery disease or cancer. Social History: She is an ex-smoker. Does not drink or use any drugs. Review of Systems: All systems reviewed and they are negative except as mentioned in HPI. Physical Examination: Vital Signs: Reviewed. Temperature is 97.2, pulse 55, breathing at 18, blood pressure is 119/57, an d saturating 95%. General: A pleasant elderly female, in no distress. Head And Neck: Pupils are equal and reactive to light. Intact eye movements. No JVD. No cervical lymphadenopathy. Neck is supple. Thyroid is not enlarged. Lungs: Clear to auscultation bilaterally. No rhonchi, wheezing, or crackles. No accessory muscle u se. Heart: Regular rate and rhythm. Bradycardic. Abdomen: Soft, nontender. Bowel sounds positive. No organomegaly. No masses or hernia. No rigidi ty or rebound. Extremities: No edema, clubbing, or cyanosis. Intact pulses. Skin: No rash. Neuro: Alert, awake, and oriented x3. No acute focal deficits appreciated. Investigations: BUN is 41, creatinine 1.76, and hemoglobin 12.1. Assessment And Recommendation: 1.Bradycardia with near syncope. This could be medication induced. Discontinue metoprolol and tiza nidine. Monitor on telemetry for another 24 hours. Her heart rate is picking up already. The patie nt could potentially be released tomorrow if her heart rate continues to improve. 2.Acute renal failure. On last blood work on her, her creatinine was normal so recommend gentle IV fluid management. Re-evaluate labs in the morning tomorrow. 3.History of coronary artery disease. There is no chest pain. Cardiac enzymes are negative. Repea t one more set of cardiac enzymes before discharge. SR/MODL Voice ID: [id number] Report ID: [id number]
[2022-08-21 03:43] LABS: Absolute Lymphocytes (CBC) 1.9 K/uL (0.7-4.9); Hematocrit 39.2 % (36.0-45.0); Lymphocytes % 14.9 % (15.3-44.8); MCV 93.9 fL (80-100); RBC Red Blood Cell Count 4.17 M/uL (3.86-4.86)
[2022-08-21 04:03] LABS: Magnesium 2.2 mg/dL (1.6-2.4); Phosphorus 3.4 mg/dL (2.5-4.9)
[2022-08-21] MEDS: ACETAMINOPHEN 500 MG TAB PO PRN ×2 (06:39→14:18)
[2022-08-21] MEDS: LIDOCAINE 4% PATCH TOP SCH (08:01)
--- NOTE | 2022-08-21 08:55 | RAD REPORT ---
EXAM DESCRIPTION: CT - Spine Lumbar Wo Con - 08/21/2022 8:26 am CLINICAL HISTORY: weakness, hip pain and radiculopathy COMPARISON: None. TECHNIQUE: Thin section axial imaging of the lumbar spine was performed. Sagittal and coronal recon struction images were generated and reviewed. All CT scans are performed using dose optimization technique as appropriate and may include automated exposure control or mA/KV adjustment according to patient size. FINDINGS: Lumbar bodies are normal in height and alignment. No vertebral body fracture or pathologic bone process identifiable. Very advanced facet joint degenerative change present at L5 -S1 with more moderate facet degenerative change at L4-5. There are no pars defects present. There is slight narrowing of the L2-3 disc space with degenerative gas in the disc space. Degenerativ e gas is present in the L5-S1 disc space and very minimally in the L4-5 disc space. Central canal detail is inherently limited. From T10-11 through L1-2 there is no suspicion for hernia tion, significant disc bulge or other central canal abnormality. The degenerative and narrowed L2-3 disc space shows a mild circumferential disc bulge. A focal hernia tion is not seen. No canal or foramen stenosis. L3-4 mild circumferential disc bulge present without focal herniation. No foraminal stenosis or centr al spinal stenosis. Facet degenerative changes are present. L4-5 disc bulge changes are present. No significant foraminal stenosis seen. Disc bulges asymmetrical ly prominent in the right exit foramen. There still appears to be ample perineural fat around the exi ting nerve roots. No central spinal stenosis. L5-S1 shows focal protrusion of disc material in the right exit foramen with no significant disc bulg e in the central canal or left exit foramen. The right foraminal protruding disc material may contact the exiting right L5 nerve root. Foraminal stenosis is mild to moderate. No central canal or left fo raminal stenosis. SI joint degenerative changes are present. Dense aortoiliac atherosclerotic calcifications are present without aneurysm. Partially imaged gallbl adder suggest the presence of sludge or small sandlike stones. IMPRESSION: No fracture or acute vertebral body finding. There is no paraspinal mass. Bulging or protruding disc material is present in the right exit foramina of L4-5 and L5-S1. The prot ruding disc may contact the right L5 nerve root at the L5-S1 level. This is a potential source for ri ght hip or leg pain. Full findings are detailed in the body of the report. No additional finding seen that would explain a right hip or leg pain pattern.
[2022-08-21] MEDS ORDERED: ENOXAPARIN 30 MG/0.3 ML SQ SCH (09:00)
[2022-08-21] MEDS: NA CHLORIDE 0.9% 1,000 ML IV SCH ×3 (09:14→20:13)
--- NOTE | 2022-08-21 18:56 | PN ---
Date of Progress Note: 08/21/2022 Subjective: Seen by bedside. Doing clinically well. Heart rate is improved to the 70s. Review of Systems: No chest pain, shortness of breath, orthopnea, cough. No nausea, vomiting, diarrhea. All other syst ems reviewed and they were negative. Physical Examination: Vital Signs: Temperature is 97.9, pulse 69, breathing at 18, blood pressure 112/57, saturating 97% o n room air. General: Pleasant elderly female, no apparent distress. Head and Neck: Pupils are equal, reactive to light. Intact eye movements. No JVD. No cervical lym phadenopathy. Neck is supple. Thyroid is not enlarged. Lungs: Clear to auscultation bilaterally. No rhonchi, wheezing, or crackles. No accessory muscle u se. Heart: Regular rate and rhythm. No extra sounds. Abdomen: Soft, nontender. Bowel sounds positive. No organomegaly. No masses or hernia. No rigidi ty or rebound. Extremities: There is no clubbing or cyanosis. Intact pulses. Skin: No rash. Neurologic: Alert, awake, oriented x3. No acute focal deficits appreciated. Investigations: Echo; normal ejection fraction. BUN is 29, creatinine 1.4, and hemoglobin is 12.9. Assessment And Recommendations: 1.Bradycardia, likely medication induced. Now, it is clearing up nicely. Keep metoprolol on hold a nd discontinue tizanidine and follow up as an outpatient within a week and we will reintroduce metopr olol if needed. 2.Acute renal failure due to dehydration, improving. Continue fluids. 3.Near syncope due to dehydration, low blood pressure, and bradycardia, medication induced. Managem ent as above. SR/MODL Voice ID: [id number] Report ID: [id number]
--- NOTE | 2022-08-21 22:14 | P.PN ---
Subjective Date of Service: 08/21/22 Chief Complaint: symptomatic bradycardia No acute events overnight. Her blood pressure and heart rate have stabilized since admission. She reports significant right leg/back pain. She denies chest pain, palpitations, or shortness of breath. Review of Systems 10-point ROS is otherwise unremarkable Gastrointestinal: Other (bowel incontinence) Genitourinary: Incontinence Neurological: Weakness, Numbness Physical Examination - Vital Signs Temperature: 97.9 F Blood Pressure: 112/57 Pulse: 69 Respirations: 18 Pulse Ox (%): 97 - Physical Exam General: Alert, Oriented x3, Mild distress HEENT: Atraumatic, Mucous membr. moist/pink, EOMI, Sclerae nonicteric Neck: JVD not distended Respiratory: Clear to auscultation bilaterally, Normal air movement Cardiovascular: No edema, Regular rate/rhythm, Normal S1 S2, No gallops, No rubs, No murmurs Gastrointestinal: Normal bowel sounds, Soft and benign, Non-distended, No tenderness, No rebound, No guarding Musculoskeletal: No clubbing Integumentary: No rashes Neurological: Normal speech, Sensation intact, Cranial nerves 3-12 intact, Normal reflexes 2+, Normal affect, Abnormal strength (3-4/5 in RLE. 5/5 in BUE, LLE) Assessment And Plan - Plan # Presyncope with Symptomatic Bradycardia and Hypotension (suspect Medication- Induced) # Moderate Bilateral Carotid Artery Stenosis # Hypertension - Based on her history, it would seem most likely that this event occurred after she was prescribed tizanidine and gabapentin. It is possible that the combination of tizanidine and metoprolol contributed to her bradycardia and hypotension. - Blood pressure has been stable here since admission - Evaluation thus far: - Chest x-ray = "no acute abnormalities displayed." - CT head = "no acute intracranial abnormality is seen." - Carotid artery ultrasound = "significant carotid bulb and internal carotid artery bilateral calcified plaquing changes resulting in elevated velocities and ratios. Findings have progressed since the 2017 study. Stenoses estimated 60- 70%." - Management plan: - Discontinue tizanidine - Hold home anti-hypertensives for now - Obtain orthostatic vital signs - Request transthoracic echocardiogram - Continue aspirin + atorvastatin for carotid artery stenosis - Will require Vascular Surgery follow-up for possible carotid endarterectomy as an outpatient # Herniated Disc at L4-L5 and L5-S1 with Urinary and Bowel Incontinence # Right-Sided Sciatica Although her right lower extremity symptoms are consistent with sciatica, she states that she has been experiencing urinary and bowel incontinence over the last 2-3 months. This history is concerning as it may indicate that the herniated disc is affecting more of the spinal cord then just the nerve root. I am unable to obtain an MRI at this time because MRI is not available at our facility until 08/23/2022. This morning on rounds, I advised that we initiate a transfer to [facility] for an expedited Neurosurgery evaluation. My understanding was that she and her , Mr. Dominguez, agreed to the transfer. I completed a doc-to-doc with Dr. White ([facility] Neurosurgery), who accepted her for transfer. I also completed doc-to-doc with Dr. Amaro ([facility] Hospitalist), who accepted her for transfer. This evening, she was assigned a bed and was soon to be transferred. I received a call from the nursing staff that she never agreed to transfer. I spoke with her and her , who stated that they changed their mind on the transfer. Instead, they would prefer that she receive physical therapy only. I explained that, although I agree physical therapy is important for sciatica, I am concerned that her neurologic involvement is more severe due to her urinary/bowel incontinence. I explained that I would not recommend any therapy until she is cleared by a Neurosurgeon as there is a possibility that this could worsen to include motor and sensory deficits. I explained that should the spinal cord become more involved, it could result in the inability to ambulate. She and her verbalized understanding of this and requested that the transfer be cancelled. At their request, the transfer was cancelled. - Continue with PRN pain control - Plan to introduce neuropathic pain medicine (gabapentin or pregabalin) once renal function improves # Acute Kidney Injury - suspect Pre-Renal - Creatinine = 1.76 -> 1.40 - Urinalysis = unremarkable - Monitor creatinine and urine output - If worsening, obtain renal ultrasound - Renally dose medications # Coronary Artery Disease s/p PCI x 2 # Hyperlipidemia - Continue aspirin + atorvastatin - Resume home metoprolol, losartan once blood pressure remains stable # Gout - Continue home allopurinol Simone Verma M.D.
[2022-08-22] MEDS: FENTANYL CITR 100 MCG/2 ML IV PRN (00:45)
[2022-08-22 03:47] LABS: Absolute Lymphocytes (CBC) 1.4 K/uL (0.7-4.9); Hematocrit 38.2 % (36.0-45.0); Lymphocytes % 13.3 % (15.3-44.8); MCV 92.5 fL (80-100); RBC Red Blood Cell Count 4.13 M/uL (3.86-4.86)
[2022-08-22 03:59] LABS: Potassium 3.3 mmol/L (3.5-5.1)
[2022-08-22] MEDS: ACETAMINOPHEN 500 MG TAB PO PRN (04:48)
[2022-08-22] MEDS: NA CHLORIDE 0.9% 1,000 ML IV SCH (04:51)
--- NOTE | 2022-08-22 08:28 | P.DS ---
Admission Date: 08/20/22 Discharge Date: 08/22/22 Disposition: ROUTINE DISCHARGE Comment: INFORMED DISCHARGE Discharge Condition: GOOD Reason for Admission: symptomatic bradycardia Consultations: 1. Cardiology Hospital Course: DIAGNOSES: # Presyncope with Symptomatic Bradycardia and Hypotension (suspect Medication- Induced) # Herniated Disc at L4-L5 and L5-S1 with Urinary and Bowel Incontinence # Acute Kidney Injury - suspect Pre-Renal # Right-Sided Sciatica # Moderate Bilateral Carotid Artery Stenosis # Hypertension # Coronary Artery Disease s/p PCI x 2 # Hyperlipidemia # Gout HOSPITAL COURSE: Mrs. Dhara Miranda is an 82 year old female with a past medical history significant for coronary artery disease s/p PCI x 2, hyperlipidemia, gout, and right-sided sciatica who was admitted to the [facility] on 08/20/2022 for pre-syncope. She has a history of rightsided sciatica, for which she presented to an urgent care as an outpatient. She was prescribed tizanidine and gabapentin. Shortly after taking these medications, she experienced an episode of presyncope. EMS was called and she was found to be bradycardic and hypotensive. She was admitted to the Medicine service for further evaluation. Her home medications were held, with improvement of her vital signs. On further history, she reported right lower extremity pain and weakness with associated urinary and bowel incontinence. A CT lumbar spine was obtained, which revealed, "no fracture or acute vertebral body finding. There is no paraspinal mass. Bulging or protruding disc material is present in the right exit foramina of L4-5 and L5-S1. The protruding disc may contact the right L5 nerve root at the L5-S1 level. This is a potential source for right hip or leg pain." Although her right lower extremity symptoms are consistent with sciatica, she stated that she had been experiencing urinary and bowel incontinence over the last 2-3 months. This history is concerning as it may indicate that the herniated disc is affecting more of the spinal cord then just the nerve root. Since we were unable to obtain an MRI at this time because MRI is not available at our facility until 08/23/2022, the initial plan was to transfer her to a facility with Neurosurgery capabilities. Yesterday, I had advised that we initiate a transfer to [facility] for an expedited Neurosurgery evaluation. My understanding was that she and her , Mr. Dominguez, agreed to the transfer. I completed a doc-to-doc with Dr. White ([facility] Neurosurgery), who accepted her for transfer. I also completed doc-to-doc with Dr. Amaro ([facility] Hospitalist), who accepted her for transfer. Yesterday evening, she was assigned a bed and was soon to be transferred. I received a call from the nursing staff that she never agreed to transfer. I spoke with her and her , who stated that they changed their mind on the transfer. Instead, they would prefer that she receive physical therapy only. I explained that, although I agree physical therapy is important for sciatica, I am concerned that her neurologic involvement is more severe due to her urinary/bowel incontinence. I explained that I would not recommend any therapy until she is cleared by a Neurosurgeon as there is a possibility that this could worsen to include motor and sensory deficits. I explained that should the spinal cord become more involved, it could result in the inability to ambulate. She and her verbalized understanding of this and requested that the transfer be cancelled. At their request, the transfer was cancelled. The risks of leaving the hospital without a Neurosurgical evaluation was discussed extensively with her and her both yesterday and today. They verbalized these risks and were able to repeat them back to me. She demonstrates medical decision making capacity and is aware of the potential consequences of her decision. She is requesting to be discharged from the hospital, so we will respect her wishes and discharge her. Additionally, she was found to have an acute kidney injury. This was thought to be secondary to transient medication-induced hypotension. Her renal function has since recovered. She was advised to hold her anti-hypertensives until she sees her PCP this week. Of note, during her presyncope evaluation, she had a carotid artery ultrasound, which revealed, "significant carotid bulb and internal carotid artery bilateral calcified plaquing changes resulting in elevated velocities and ratios. Findings have progressed since the 2017 study. Stenoses estimated 60-70%." This was reviewed with Dr. Correia, who will follow this up in his clinic when he sees her for her sciatica. He states that she may be a candidate for an elective endarterectomy. On 08/22/2022, she was seen on morning rounds. She was discharged with instructions to schedule follow-up appointments with her PCP, with Neurology (Dr. Correia), with Neurosurgery (Dr. White), and with Cardiology (Dr. Feliciano). She and her were given the opportunity to ask questions and reported no further questions. Furthermore, all questions were answered to the best of my ability. A copy of this discharge summary will be sent to the above providers to facilitate continuity of care. Today, I personally spent 40 minutes on her case, of which greater than 50% of the time was spent in patient education, counseling, and coordination of care as described above. - Physical Exam General: Alert, Oriented x3, No distress HEENT: Atraumatic, EOMI, Sclerae nonicteric Neck: JVD not distended Respiratory: Clear to auscultation bilaterally, Normal air movement Cardiovascular: No edema, Regular rate/rhythm, No murmurs Gastrointestinal: Normal bowel sounds, Soft, Non-distended, No tenderness Musculoskeletal: No clubbing Integumentary: No rashes Neurological: Normal speech, Sensation intact, Cranial nerves 3-12 intact, Normal reflexes 2+, Normal affect, Abnormal strength (3-4/5 in RLE. 5/5 in BUE, LLE) Vital Signs/Physical Exam: Temp Pulse Resp BP Pulse Ox 97.8 F 90 20 153/67 H 94 08/22/22 04:00 08/22/22 04:00 08/22/22 04:00 08/22/22 04:00 08/22/22 04:00 Laboratory Data at Discharge: WBC 10.70 K/uL (4.3-10.9) 08/22/22 02:47 Hgb 12.8 g/dL (12.0-15.0) 08/22/22 02:47 Hct 38.2 % (36.0-45.0) 08/22/22 02:47 Plt Count 268 K/uL (152-406) 08/22/22 02:47 PT 12.3 SECONDS (9.5-12.5) 08/20/22 09:29 INR 1.12 08/20/22 09:29 Sodium 143 mmol/L (136-145) 08/22/22 02:47 Potassium 3.3 mmol/L (3.5-5.1) L D 08/22/22 02:47 BUN 13 mg/dL (7-18) 08/22/22 02:47 Creatinine 0.94 mg/dL (0.55-1.02) 08/22/22 02:47 Glucose 112 mg/dL (74-106) H 08/22/22 02:47 Phosphorus 3.4 mg/dL (2.5-4.9) 08/21/22 03:02 Magnesium 2.2 mg/dL (1.6-2.4) 08/21/22 03:02 Total Bilirubin 0.3 mg/dL (0.2-1.0) 08/20/22 09:29 AST 22 U/L (15-37) 08/20/22 09:29 ALT 30 U/L (13-56) 08/20/22 09:29 Alkaline Phosphatase 103 U/L (45-117) 08/20/22 09:29 Home Medications: Atorvastatin Calcium [Lipitor] 80 mg PO BEDTIME 02/18/17 Allopurinol 1 tab PO DAILY 08/20/22 Amitriptyline [Elavil*] 1 tab PO DAILY 08/20/22 Aspirin [Aspirin EC 81 MG] 81 mg PO DAILY #1 08/22/22 Lidocaine 4% Patch [Lidoderm 5% Patch*] 1 patch TOP DAILY patch 08/22/22 New Medications: Aspirin [Aspirin EC 81 MG] 81 mg PO DAILY #1 Physician Discharge Instructions: 1. Please call and schedule a follow-up appointment with your PCP in 3-5 days 2. Please call and schedule a follow-up appointment with Neurosurgery (Dr. White) as soon as possible 3. Please call and schedule a follow-up appointment with Neurology (Dr. Correia) as soon as possible - He will likely refer you to a Vascular Surgeon for the narrowing in your carotid arteries 4. Please call and schedule a follow-up appointment with Cardiology (Dr. Feliciano) in 5-7 days Diet: AHA Activity: Fall precautions Followup: Esteban White MD [CONSULTING - CAN NOT ADMIT] - Tom Feliciano MD [ACTIVE - CAN ADMIT] - Albaro Correia MD [ASSOCIATE-ACTIVE - CAN ADMIT] - Time spent managing pt's care (in minutes): 40
[2022-08-22] MEDS ORDERED: AMITRIPTYLINE 25 MG TAB PO SCH (09:00)
[2022-08-22] MEDS ORDERED: allopurinoL 100 MG TAB PO SCH (09:00)
[2022-08-22] MEDS ORDERED: ASPIRIN EC 81 MG TAB PO SCH (09:00)
[2022-08-22 09:25] VITALS: O2SAT 95
[2022-08-22 10:33] VITALS: BP 162/72; TEMP 98.5
[2022-08-22] MEDS ORDERED: ATORVASTATIN 80 MG TAB PO SCH (21:00)
--- NOTE | 2022-08-23 07:50 | ECHO ---
HEIGHT: 5 ft 5 in WEIGHT: 219 lb 15.989 oz DATE OF STUDY: 08/20/[address]: Sandip Jeter 2-DIMENSIONAL: YES M.MODE: YES DOPPLER: YES COLOR FLOW: YES TDS: PORTABLE: DEFINITY: BUBBLE STUDY: DIAGNOSIS: NEAR SYNCOPE CARDIAC HISTORY: CATHERIZATION: SURGERY: PROSTHETIC VALVE: PACEMAKER: MEASUREMENTS (cm) DIASTOLIC (NORMALS) SYSTOLIC (NORMALS) IVSd 1.0 (0.6-1.2) LA Diam 3.7 (1.9-4.0) LVEF 65% LVIDd 4.8 (3.5-5.7) LVIDs 3.1 (2.0-3.5) %FS 36% LVPWd 1.1 (0.6-1.2) Ao Diam 2.9 (2.0-3.7) 2 DIMENSIONAL ASSESSMENT: RIGHT ATRIUM: NORMAL LEFT ATRIUM: NORMAL RIGHT VENTRICLE: NORMAL LEFT VENTRICLE: NORMAL TRICUSPID VALVE: MILD TRICUSPID REGURGITATION MITRAL VALVE: MILD MITRAL REGURGITATION PULMONIC VALVE: NORMAL AORTIC VALVE: CALCIFIED, NO AORTIC STENOSIS PERICARDIAL EFFUSION: NONE AORTIC ROOT: NORMAL LEFT VENTRICULAR WALL MOTION: NORMAL DOPPLER/COLOR FLOW: SEE BELOW COMMENTS: 1. NORMAL LEFT VENTRICULAR EJECTION FRACTION 60-65% 2. NORMAL WALL MOTION 3. GRADE I DIASTOLIC DYSFUNCTION 4. MILD MITRAL REGURGITATION 5. MILD TRICUSPID REGURGITATION 6. AORTIC VALVE SCLEROSIS, NO AORTIC STENOSIS TECHNOLOGIST: JAKE HAWKINS
--- NOTE | 2022-08-23 16:55 | EKG ---
Test Date: 2022-08-21 Test Time: 14:08:26 Concrete Sculptor: SURINDER MEASUREMENT RESULTS: Intervals: Rate: 92 MI: 166 QRSD: 80 QT: 338 QTc: 417 [place]: P: 26 MI: 166 QRS: 29 T: 38 INTERPRETIVE STATEMENTS: Sinus rhythm with PACs, and PVCs Nonspecific ST abnormality Abnormal ECG Compared to ECG 08/20/2022 09:03:31 ST (T wave) deviation now present Atrial premature complex(es) no longer present Aberrant conduction of supraventricular beat(s) no longer present Electronically Signed On 08-23-22 16:54:03 MOVING PICTURE PRODUCER by Tom Feliciano
--- NOTE | 2022-08-23 17:02 | EKG ---
Test Date: 2022-08-20 Test Time: 09:03:31 Director Search: GILDARDO MEASUREMENT RESULTS: Intervals: Rate: 61 CO: 160 QRSD: 90 QT: 426 QTc: 428 [place]: P: 57 CO: 160 QRS: 29 T: 46 INTERPRETIVE STATEMENTS: Sinus rhythm with premature atrial complexes with aberrant conduction Otherwise normal ECG Compared to ECG 08/20/2022 09:01:51 Atrial premature complex(es) now present Aberrant conduction of supraventricular beat(s) now present Sinus bradycardia no longer present Fusion complex(es) no longer present Electronically Signed On 08-23-22 16:57:39 MUSIC ORCHESTRATOR by Tom Feliciano
--- NOTE | 2022-08-23 17:02 | EKG ---
Test Date: 2022-08-20 Test Time: 09:00:48 Leather Tooler: GILDARDO MEASUREMENT RESULTS: Intervals: Rate: 53 ID: [id number] QRSD: 88 QT: 412 QTc: 386 [place]: P: 66 ID: [id number] QRS: 28 T: 20 INTERPRETIVE STATEMENTS: Sinus bradycardia Otherwise normal ECG Compared to ECG 10/30/2020 11:44:59 Sinus rhythm no longer present Electronically Signed On 08-23-22 16:57:41 MACHINE BRUSH MAKER by Tom Feliciano
== END 2022-08-22 09:50 | disposition home or self-care (01) | DRG 312 ==
LOC: ER 08:35 → ERHOLD 11:48 → 4TH 12:53
PROVIDERS: ADMIT Internal Medicine; ATTEND Internal Medicine
DX: I95.2 Hypotension due to drugs (principal); N17.9 Acute kidney failure, unspecified; R00.1 Bradycardia, unspecified; E78.5 Hyperlipidemia, unspecified; I10 Essential (primary) hypertension; E86.0 Dehydration; E66.9 Obesity, unspecified; I65.23 Occlusion and stenosis of bilateral carotid arteries; M54.31 Sciatica, right side; M10.9 Gout, unspecified; M51.26 Other intervertebral disc displacement, lumbar region; D72.829 Elevated white blood cell count, unspecified; I25.10 Atherosclerotic heart disease of native coronary artery without angina pectoris; T42.8X5A Adverse effect of antiparkinsonism drugs and other central muscle-tone depressants, initial encounter; T42.6X5A Adverse effect of other antiepileptic and sedative-hypnotic drugs, initial encounter; I25.2 Old myocardial infarction; R32 Unspecified urinary incontinence; Z88.8 Allergy status to other drugs, medicaments and biological substances; Z95.5 Presence of coronary angioplasty implant and graft; Z68.36 Body mass index [BMI] 36.0-36.9, adult; Z79.82 Long term (current) use of aspirin; Z96.89 Presence of other specified functional implants; Z87.891 Personal history of nicotine dependence; Z28.310 Unvaccinated for COVID-19; Z79.899 Other long term (current) drug therapy; Z20.822 Contact with and (suspected) exposure to COVID-19
CPT/HCPCS: 0240U; 36415; 70450; 71045; 72131; 72192; 80048; 80076; 81003; 81015; 83735; 83880; 84100; 84484; 85025; 85610; 93005; 93306; 93880; 94760; 96361; 96374; 97116; 97161; 99285; J1650; J2001; J3010; J7030; J7120

== ENCOUNTER 2022-10-15 06:44 | Day surgery (SDC) | payer OTHER ==
[2022-10-12 13:30] LABS: Absolute Lymphocytes (CBC) 1.4 K/uL (0.7-4.9); Hematocrit 40.7 % (36.0-45.0); MCV 92.6 fL (80-100); MPV 8.8 fL (7.6-11.3)
[2022-10-12 13:34] LABS: Protime INR 0.97
--- NOTE | 2022-10-13 13:23 | EKG ---
Test Date: 2022-10-12 Test Time: 13:08:42 Redeye Gunner: PROMISE MEASUREMENT RESULTS: Intervals: Rate: 70 [place]: 158 QRSD: 78 QT: 362 QTc: 390 [place]: P: 65 AK: 158 QRS: 10 T: 74 INTERPRETIVE STATEMENTS: Normal sinus rhythm Normal ECG Compared to ECG 08/21/2022 14:08:26 Ventricular premature complex(es) no longer present ST (T wave) deviation no longer present Electronically Signed On 10-13-22 13:20:05 CDT by Tom Feliciano
[~2022-10-15 06:44] MED LIST changes: +ATROPINE SULF 1 MG/10 ML SYR IV ONE; +FENTANYL CITR 100 MCG/2 ML ONE; -LIDOCAINE 1% 20 ML MDV ONE; +LIDOCAINE 1% MPF 30 ML VIAL ONE; +MIDAZOLAM HCL 2 MG/2 ML INJ ONE
[2022-10-15] MEDS ORDERED: NA CHLORIDE 0.9% 500 ML ONE (07:11)
[2022-10-15] MEDS ORDERED: MIDAZOLAM HCL 2 MG/2 ML INJ ONE (08:08)
[2022-10-15] MEDS ORDERED: FENTANYL CITR 100 MCG/2 ML ONE (08:18)
[2022-10-15] MEDS ORDERED: HYDRALAZINE HCL 20 MG/ML VIAL ONE (08:21)
[2022-10-15 10:18] VITALS: TEMP 97
[2022-10-15 10:56] VITALS: BP 125/64; O2SAT 100
--- NOTE | 2022-10-15 13:04 | OP ---
Date of Procedure: 10/15/2022 Surgeon: JAVID MALDONADO Procedure Performed: Selective bilateral carotid angiogram. Indication: Carotid stenosis by Doppler. Access: Right femoral artery 4-South African closed with manual pressure. Complications: None. Bleeding: Less than 10 mL. Description Of Procedure: After risks, benefits, and alternatives were explained, patient agreed to the procedure and signed informed consent. Patient was brought to the cardiac catheterization [facility], prepped and draped in usual sterile fashion. We used fentanyl and Versed in incremental doses to achieve adequate moderate sedation. Then, I accessed the right femoral artery using micropuncture kit, fluoroscopy and ultrasound guidance, placed a 4-[place] African [place] sheath and then took a 4-[place] African 3DRC catheter into the aortic root, engaged the right common carotid artery and then the left common carotid artery, took standard views and then the catheter was removed. Sheath was removed. Manual pressure was applied with good hemostasis. Findings: 1.Right common carotid artery is normal, right internal carotid artery has mild 20% to 30% stenosis. 2.The left common carotid artery is normal, left internal carotid artery is with proximal 30% stenos is and the external carotid appears to be normal. Conclusion: Mild carotid artery stenosis bilaterally. Plan: Medical management. SR/MODL Voice ID: [id number] Report ID: [id number]
== END 2022-10-15 11:20 | disposition home or self-care (01) ==
LOC: CCL 06:44
PROVIDERS: ATTEND Internal Medicine
DX: I65.23 Occlusion and stenosis of bilateral carotid arteries (principal); I25.10 Atherosclerotic heart disease of native coronary artery without angina pectoris; I10 Essential (primary) hypertension; E78.2 Mixed hyperlipidemia; Z95.5 Presence of coronary angioplasty implant and graft; Z79.899 Other long term (current) drug therapy; Z88.8 Allergy status to other drugs, medicaments and biological substances
CPT/HCPCS: 93005; 85025; 80048; 36415; 85610; 85730; 36222; 76937; C1893; J0360; J2001; J2250 ×2; J3010; J7040; J0461

== ENCOUNTER 2023-11-09 05:29 | Observation (INO) | payer OTHER ==
[2023-11-09 07:41] LABS: Absolute Basophils 0.1 K/uL (0-0.5); Absolute Eosinophils 0.2 K/uL (0-0.5); Absolute Lymphocytes (CBC) 1.1 K/uL (0.7-4.9); Absolute Monocytes 0.5 K/uL (0.1-1.3); Absolute Neutrophil 8.7 K/uL (1.8-8.0); Basophils % 0.6 % (0-1.3); Eosinophils % 2.2 % (0-4.4); Hematocrit 39.4 % (36.0-45.0); Hemoglobin 12.8 g/dL (12.0-15.0); Lymphocytes % 10.7 % (15.3-44.8); MCH 30.8 pg (27.0-35.0); MCHC 32.5 g/dL (32.0-36.0); MCV 94.7 fL (80-100); MPV 9.3 fL (7.6-11.3); Monocytes % 4.9 % (3.3-12.3); Neutrophils % 81.6 % (41.7-73.7); Platelets 248 thou/uL (152-406); RBC Red Blood Cell Count 4.16 M/uL (3.86-4.86); Red Cell Distribution Width 14.1 % (12.1-15.2)
--- NOTE | 2023-11-09 07:46 | RAD REPORT ---
EXAM DESCRIPTION: RAD - Chest Single View - 11/09/2023 6:11 am CLINICAL HISTORY: dizzy Chest pain. COMPARISON: Chest Single View dated 08/20/2022; Chest Single View dated 01/20/2018; Chest Single View dated 02/18/2017; Chest Pa And Lat (2 Views) dated 11/21/2015 FINDINGS: Portable technique limits examination quality. The lungs are grossly clear. The heart is normal in size. No displaced fractures. IMPRESSION: No acute intrathoracic process suspected.
[2023-11-09 07:49] LABS: PT Prothrombin Time 10.9 SECONDS (9.5-12.5); Protime INR 0.99
[2023-11-09] MEDS ORDERED: ONDANSETRON 4 MG/2 ML VIAL ONE (07:49)
[2023-11-09] MEDS ORDERED: NA CHLORIDE 0.9% 1,000 ML ONE (07:49)
[2023-11-09] MEDS ORDERED: METOCLOPRAMIDE 10 MG/2mL INJ ONE (07:49)
--- NOTE | 2023-11-09 08:01 | RAD REPORT ---
EXAM DESCRIPTION: CT - Head Brain Wo Cont - 11/09/2023 7:55 am CLINICAL HISTORY: DIZZINESS Headache, drowsiness, dizziness COMPARISON: Head Brain Wo Cont dated 08/20/2022; Head Brain Wo Cont dated 02/18/2017 TECHNIQUE: All CT scans are performed using dose optimization technique as appropriate and may inclu de automated exposure control or mA/KV adjustment according to patient size. FINDINGS: No intracranial hemorrhage, hydrocephalus or extra-axial fluid collection.Mild generalized brain atrophy.No areas of brain edema or evidence of midline shift. The paranasal sinuses and mastoids are clear. The calvarium is intact. IMPRESSION: No acute intracranial abnormality.
[2023-11-09 08:09] LABS: Albumin 3.2 g/dL (3.4-5.0); Albumin/Globulin Ratio 0.9 (1.1-1.8); Anion Gap 9.3 mEq/L (5.0-15.0); Bilirubin Direct 0.1 mg/dL (0-0.2); Bilirubin Indirect, Calculated 0.4 mg/dL (0.2-0.8); Bilirubin Total 0.5 mg/dL (0.2-1.0); Globulin 3.7 g/dL (2.3-3.5); Magnesium 2.3 mg/dL (1.6-2.4); Potassium 4.3 mEq/L (3.5-5.1); Protein, Total 6.9 g/dL (6.4-8.2); Thyroid Stimulating Hormone 1.42 uIU/mL (0.358-3.740); Troponin High Sensitivity 11.3 pg/mL (<58.9)
--- NOTE | 2023-11-09 08:18 | EDPHYS ---
Physician Documentation [facility] Name: Dhara Miranda Age: 83 yrs Sex: Female : 1940 Arrival Date: 11/09/2023 Time: 05:29 Bed 7 Private MD: ED Physician Dario Woods HPI: 11/08 05:31 This 83 yrs old Female presents to ER via Unassigned with complaints of sp4 Dizziness, Nausea. 07:21 83-year-old female presents with complaints of dizziness and nausea. . sp4 07:30 Patient states she was feeling unwell at home she slid onto the floor denies any sp4 injury.. Patient has history of coronary artery disease status post PCI x 2, hyperlipidemia, gout, right-sided sciatica, and presyncope. Patient's medications include atorvastatin, allopurinol, amitriptyline, aspirin, lidocaine.. Historical: - Allergies: 05:41 Lisinopril; vc1 - PMHx: 05:41 cardiac stent; Hyperlipidemia; Hypertension; Myocardial infarction; vc1 - Immunization history:: Client reports having NOT received the Covid vaccine. Flu vaccine is not up to date. - Infectious Disease History:: Denies. - Social history:: Smoking status: Patient denies any tobacco usage or history of. - Family history:: not pertinent. ROS: 07:21 Constitutional: Negative for fever, chills, and weight loss, positive nausea and sp4 dizziness 07:21 All other systems are negative, Exam: 07:21 Constitutional: This is a well developed, well nourished patient who is awake, alert, sp4 and in no acute distress. Head/Face: Normocephalic, atraumatic. Eyes: Pupils equal round and reactive to light, extra-ocular motions intact. Lids and lashes normal. Conjunctiva and sclera are not injected. Cornea within normal limits. Periorbital areas with no swelling, redness, or edema. ENT: Nares patent. No nasal discharge, no septal abnormalities noted. Tympanic membranes are normal and external auditory canals are clear. Oropharynx with no redness, swelling, or masses, exudates, or evidence of obstruction, uvula midline. Mucous membranes moist. Neck: Trachea midline, no thyromegaly or masses palpated, and no cervical lymphadenopathy. Supple, full range of motion without nuchal rigidity, or vertebral point tenderness. Chest/axilla: Normal chest wall appearance and motion. Nontender with no deformity. No lesions are appreciated. Cardiovascular: Regular rate and rhythm with a normal S1 and S2. No gallops, murmurs, or rubs. Normal PMI, no JVD. No pulse deficits. Respiratory: Lungs have equal breath sounds bilaterally, clear to auscultation and percussion. No rales, rhonchi or wheezes noted. No increased work of breathing, no retractions or nasal flaring. Abdomen/GI: Soft, with normal bowel sounds. No distension or tympany. No guarding or rebound. No evidence of tenderness throughout. Back: No spinal tenderness. No costovertebral tenderness. Skin: Warm, dry with normal turgor. Normal color with no rashes, no lesions, and no evidence of cellulitis. MS/ Extremity: Pulses equal, no cyanosis. Neurovascular intact. Full, normal range of motion. Neuro: Awake and alert, GCS 15, oriented to person, place, time, and situation. Cranial nerves II-XII grossly intact. Motor strength 5/5 in all extremities. Sensory grossly intact. Psych: Awake, alert, with orientation to person, place and time. Behavior, mood, and affect are within normal limits 07:30 ECG was reviewed by the Attending Physician. Normal sinus rhythm, rate 60, EKG time 0 sp4 559 Vital Signs: 05:38 BP 175 / 69; Pulse 61; Resp 16; Temp 97.7; Pulse Ox 97% ; Weight 92.99 kg; Height 5 ft. vc1 5 in. ; 07:44 BP 161 / 64; Pulse 65; Resp 15 S; Pulse Ox 100% on 2 lpm NC; kc6 08:21 BP 160 / 69; Pulse 68; Resp 18; Temp 97.2; Pulse Ox 97% on 3 lpm NC; kc6 10:29 BP 158 / 71; Pulse 77; Resp 16 S; Pulse Ox 97% on R/A; kc6 11:53 BP 158 / 61; Pulse 75; Resp 16 S; Pulse Ox 100% on R/A; kc6 05:38 Body Mass Index 34.11 (92.99 kg, 165.1 cm) vc1 NIH Stroke Scale Scores: 07:21 NIHSS Score: 0 sp4 Abernathy Coma Score: 07:21 Eye Response: spontaneous(4). Motor Response: obeys commands(6). Verbal Response: sp4 oriented(5). Total: 15. MDM: 06:42 Patient medically screened. sp4 07:46 Differential Diagnosis altered mental status, sepsis, flu. Data reviewed: vital signs, sp4 nurses notes, EMS record, lab test result(s), EKG, radiologic studies, CT scan, plain films. ED course: When patient stood up she felt unwell show post lumbar, bed. At this time patient has generalized weakness, dizziness, nausea. She is not able to ambulate. No sign of acute CVA , no sign of unilateral weakness. Patient warrants admission for further evaluation and management. . 07:48 ED course: EXAM DESCRIPTION: RAD - Chest Single View - 11/09/2023 6:11 am CLINICAL sp4 HISTORY: dizzy Chest pain. COMPARISON: Chest Single View dated 08/20/2022; Chest Single View dated 01/20/2018; Chest Single View dated 02/18/2017; Chest Pa And Lat (2 Views) dated 11/21/2015 FINDINGS: Portable technique limits examination quality. The lungs are grossly clear. The heart is normal in size. No displaced fractures. IMPRESSION: No acute intrathoracic process suspected.. 07:49 Transition of care: Care assumed from Abran Saenz MD. ec2 07:50 ED course: Patient status. Physician, in brief patient arrives today due to concern for ec2 feeling unwell as well as dizziness. Patient is unstable on her feet. Patient did not ambulate the bedside and became dizzy and unable to ambulate. Plan is to follow-up lab work, CT imaging. Likely admit. 08:11 ED course: Shows renal dysfunction with a GFR 45, reassuring CBC, LFTs are ec2 unremarkable, BNP, magnesium, troponin are nonactionable. Chest x-ray shows no acute intrathoracic process, thyroid studies are unremarkable. CT scan of the head shows no acute intracranial process. Ultimately patient has issues with ambulation and caring for self and will be unsafe for return to home. Will admit for continued management. Discussed case with hospitalist, pending admission . 11/08 05:32 Order name: Basic Metabolic Panel; Complete Time: 08:10 sp4 11/08 05:32 Order name: CBC with Diff; Complete Time: 08:10 sp4 11/08 05:32 Order name: LFT's; Complete Time: 08:10 sp11/08 05:32 Order name: Magnesium; Complete Time: 08:10 11/08 05:32 Order name: NT PRO-BNP; Complete Time: 08:10 11/08 05:32 Order name: PT-INR; Complete Time: 08:10 11/08 05:32 Order name: Troponin HS; Complete Time: 08:10 11/08 05:32 Order name: Lipase; Complete Time: 08:10 11/08 05:32 Order name: TSH; Complete Time: 08:10 11/08 05:32 Order name: T4 Free; Complete Time: 08:10 11/08 07:46 Order name: SARS RAPID; Complete Time: 10:57 11/08 07:46 Order name: Influenza Screen (a \T\ B); Complete Time: 10:57 11/08 05:32 Order name: XRAY Chest (1 view); Complete Time: 08:10 11/08 07:45 Order name: CT Head Brain wo Cont; Complete Time: 08:10 11/08 08:58 Order name: Brain Wo Cont; Complete Time: 10:57 EDMS 11/08 08:58 Order name: Physical Therapy Consult EDMS 11/08 05:32 Order name: Cardiac monitoring; Complete Time: 07:17 11/08 05:32 Order name: EKG - Nurse/Tech; Complete Time: 07:19 11/08 05:32 Order name: IV Saline Lock; Complete Time: 07:11/08 05:32 Order name: Labs collected and sent; Complete Time: 07:17 11/08 05:32 Order name: O2 Per Protocol; Complete Time: 07:17 11/08 05:32 Order name: O2 Sat Monitoring; Complete Time: 07:11/08 06:50 Order name: Labs - recollect needed: Everything recollect per lab; Complete Time: 07:17 cm10 EC:30 Rate is 60 beats/min. Rhythm is regular, Normal Sinus Rhythm. QRS [place] is Normal. CT sp4 interval is normal. QRS interval is normal. QT interval is normal. No Q waves. T waves are Normal. No ST changes noted. Clinical impression: No evidence of ischemia. Interpreted by me. Reviewed by me. Administered Medications: 08:04 Drug: Ondansetron IVP 4 mg IVP once; over 2 minutes Route: IVP; Site: right forearm; kc6 08:36 Follow up: Response: No adverse reaction; Nausea is decreased; Vomiting decreased kc6 08:05 Drug: metoCLOPramide IVP 10 mg IVP once; over 1 to 2 minutes Route: IVP; Site: right kc6 forearm; 08:36 Follow up: Response: No adverse reaction; Nausea is decreased; Vomiting decreased kc6 08:05 Drug: NS 0.9% IV 1000 ml IV at 125 ml/hr continuous Route: IV; Rate: 125 ml/hr; Site: kc6 right forearm; 09:30 Follow up: Response: No adverse reaction; IV Status: Infusion continued upon admission; 6 IV Intake: 1000ml 09:10 Drug: Meclizine PO 12.5 mg PO once Route: PO; 6 10:32 Follow up: Response: No adverse reaction 6 Disposition Summary: 11/09/23 08:18 Hospitalization Ordered Notes: Hospitalization Status: Inpatient Admission ec2 Location: Telemetry/MedSurg (Inpatient) ec2 Condition: Stable ec2 Problem: an acute exacerbation ec2 Symptoms: are unchanged ec2 Bed/Room Type: Standard ec2 Provider: Catrachito Moreno(11/09/23 08:18) ec2 Room Assignment: [facility](11/09/23 11:31) [facility] Diagnosis - Dizziness and giddiness ec2 - Weakness ec2 Forms: - Medication Reconciliation Form ec2 - SBAR form ec2 - Leadership Thank You Letter ec2 NIH Stroke Scale - NIH Stroke Score Date: 11/09/2023 Time: 07:21 Total Score = 0 10. Dysarthria (speech clarity - read or repeat words) - 0(Normal) 11. Extinction and Inattention (visual/tactile/auditory/spatial/personal) - 0(No abnormality) 1a. Level of Consciousness (LOC) - 0(Alert) 1b. Level of Consciousness (LOC) (Month \T\ Age) - 0(Both) 1c. LOC Commands (Open \T\ Closes Eyes/Molder Hand) - 0(Both) 2. Best Gaze (Lateral Gaze Paresis) - 0(Normal) 3. Visual Field Loss - 0(No visual loss) 4. Facial Palsy - 0(Normal) 5a. Left Arm: Motor (10-second hold) - 0(No drift) 5b. Right Arm: Motor (10-second hold) - 0(No drift) 6a. Left Leg: Motor (5-second hold - always test supine) - 0(No drift) 6b. Right Leg: Motor (5-second hold - always test supine) - 0(No drift) 7. Limb Ataxia (finger/nose \T\ heel/hampton - test with eyes open) - 0(Absent) 8. Sensory Loss (pinprick arms/legs/face) - 0(Normal) 9. Best Language: Aphasia (description/naming/reading) - 0(No aphasia) Initials: sp4 Signatures: Dispatcher [employer] EDMS Jose Rafael Parish, CASE MANAGEMENT ASSISTANT-C CASE MANAGEMENT ASSISTANT-Cla1 Maria Guadalupe Granados, RN RN ll1 Kaylin Reed RN RN vc1 Bela Pagan RN RN kc6 Abran Saenz MD MD sp4 Mamta Trinidad RN RN cm10 Dario Woods MD MD ec2 Corrections: (The following items were deleted from the chart) 05:32 05:32 BASIC METABOLIC PANEL+C.LAB.BRZ ordered. EDMS EDMS 05:32 05:32 CBC+H.LAB.BRZ ordered. EDMS EDMS 05:32 05:32 HEPATIC FUNCTION+C.LAB.BRZ ordered. EDMS EDMS 05:32 05:32 MAGNESIUM+C.LAB.BRZ ordered. EDMS EDMS 05:32 05:32 PROBNP+C.LAB.BRZ ordered. EDMS EDMS 05:32 05:32 PROTIME (+INR)+COAG.LAB.BRZ ordered. EDMS EDMS 05:32 05:32 Troponin High Sensitivity+C.LAB.BRZ ordered. EDMS EDMS 05:32 05:32 Chest Single View+RAD.RAD.BRZ ordered. EDMS EDMS 05:32 05:32 LIPASE+C.LAB.BRZ ordered. EDMS EDMS 05:32 05:32 THYROID STIMULAT HORMONE+C.LAB.BRZ ordered. EDMS EDMS 05:32 05:32 T4 FREE+C.BRZ ordered. EDMS EDMS 08:18 08:18 BabatundeFredy saleemjanny ec2 ec2 11:31 08:18 ec2 1
--- NOTE | 2023-11-09 08:18 | ER ---
Nurse's Notes [facility] Name: Dhara Miranda Age: 83 yrs Sex: Female : 1940 Arrival Date: 11/09/2023 Time: 05:29 Bed 7 Private MD: Diagnosis: Dizziness and giddiness;Weakness Presentation: 11/08 05:38 Chief complaint: EMS states: c/o dizziness, nausea, fall. Coronavirus screen: Client vc1 denies travel out of the [place] in the last 14 days. At this time, the client does not indicate any symptoms associated with coronavirus-19. Ebola Screen: Patient negative for fever greater than or equal to 101.5 degrees Fahrenheit, and additional compatible Ebola Virus Disease symptoms Patient denies exposure to infectious person. Patient denies travel to an Ebola-affected area in the 21 days before illness onset. No symptoms or risks identified at this time. Initial Sepsis Screen: Does the patient meet any 2 criteria? No. Patient's initial sepsis screen is negative. Does the patient have a suspected source of infection? No. Patient's initial sepsis screen is negative. Risk Assessment: Do you want to hurt yourself or someone else? Patient reports no desire to harm self or others. Onset of symptoms was November 09, 2023. 05:38 Method Of Arrival: EMS: [facility] vc1 05:38 Acuity: ANN 3 vc1 05:48 Care prior to arrival: Medication(s) given: zofran 4 mg, IV initiated. 20 GA, in the vc1 right forearm. Triage Assessment: 05:45 General: Appears in no apparent distress. Behavior is calm, cooperative, appropriate vc1 for age. Pain: Denies pain. EENT: No deficits noted. No signs and/or symptoms were reported regarding the EENT system. Neuro: Level of Consciousness is awake, alert, obeys commands, Oriented to person, place, time, situation, Appropriate for age Reports dizziness, a syncopal episode. Cardiovascular: Reports syncope, Patient's skin is warm and dry. Respiratory: Airway is patent Respiratory effort is even, unlabored, Respiratory pattern is regular, symmetrical, Breath sounds are clear bilaterally. GI: Reports nausea. : No deficits noted. Derm: Skin is intact, is healthy with good turgor, Skin temperature is warm. Musculoskeletal: Circulation, motion, and sensation intact. Range of motion: intact in all extremities. Historical: - Allergies: 05:41 Lisinopril; vc1 - PMHx: 05:41 cardiac stent; Hyperlipidemia; Hypertension; Myocardial infarction; vc1 - Immunization history:: Client reports having NOT received the Covid vaccine. Flu vaccine is not up to date. - Infectious Disease History:: Denies. - Social history:: Smoking status: Patient denies any tobacco usage or history of. - Family history:: not pertinent. Screenin:44 [facility] ED Fall Risk Assessment (Adult) History of falling in the last 3 months, vc1 including since admission Yes- physiologic fall (2 pts) Confusion or Disorientation No (0 pts) Intoxicated or Sedated No (0 pts) Impaired Gait Yes (1 pt) Mobility Assist Device Used No (0 pt) Altered Elimination No (0 pt) Score/Fall Risk Level 3 or more points = High Risk Oriented to surroundings, Maintained a safe environment, Educated pt \T\ family on fall prevention, incl call for assistance when getting out of bed. Abuse screen: Denies threats or abuse. Nutritional screening: No deficits noted. Tuberculosis screening: No symptoms or risk factors identified. Assessment: 07:54 General: Appears in no apparent distress. comfortable, obese, well groomed, well kc6 developed, Behavior is calm, cooperative, appropriate for age. Pain: Denies pain. Neuro: Level of Consciousness is awake, alert, obeys commands, Oriented to person, place, time, situation, Appropriate for age Reports dizziness. Cardiovascular: Capillary refill < 3 seconds. Respiratory: Airway is patent Trachea midline Respiratory effort is even, unlabored, Respiratory pattern is regular, symmetrical. GI: Reports nausea, Patient currently denies abdominal pain, diarrhea, vomiting. : No signs and/or symptoms were reported regarding the genitourinary system. EENT: No signs and/or symptoms were reported regarding the EENT system. Derm: No signs and/or symptoms reported regarding the dermatologic system. Skin is intact, is healthy with good turgor, Skin is pink, warm \T\ dry. Musculoskeletal: No signs and/or symptoms reported regarding the musculoskeletal system. Circulation, motion, and sensation intact. Capillary refill < 3 seconds, Range of motion: intact in all extremities. 08:36 Reassessment: Patient appears in no apparent distress at this time. No changes from kc6 previously documented assessment. Patient and/or family updated on plan of care and expected duration. Pain level reassessed. Patient is alert, oriented x 3, equal unlabored respirations, skin warm/dry/pink. 09:25 Reassessment: Pt taken to MRI. ph 10:29 Reassessment: Patient appears in no apparent distress at this time. No changes from kc6 previously documented assessment. Patient and/or family updated on plan of care and expected duration. Pain level reassessed. Patient is alert, oriented x 3, equal unlabored respirations, skin warm/dry/pink. 11:53 Reassessment: Patient appears in no apparent distress at this time. No changes from kc6 previously documented assessment. Patient and/or family updated on plan of care and expected duration. Pain level reassessed. Patient is alert, oriented x 3, equal unlabored respirations, skin warm/dry/pink. Vital Signs: 05:38 BP 175 / 69; Pulse 61; Resp 16; Temp 97.7; Pulse Ox 97% ; Weight 92.99 kg; Height 5 ft. vc1 5 in. ; 07:44 BP 161 / 64; Pulse 65; Resp 15 S; Pulse Ox 100% on 2 lpm NC; kc6 08:21 BP 160 / 69; Pulse 68; Resp 18; Temp 97.2; Pulse Ox 97% on 3 lpm NC; kc6 10:29 BP 158 / 71; Pulse 77; Resp 16 S; Pulse Ox 97% on R/A; kc6 11:53 BP 158 / 61; Pulse 75; Resp 16 S; Pulse Ox 100% on R/A; kc6 05:38 Body Mass Index 34.11 (92.99 kg, 165.1 cm) vc1 [place] Coma Score: 07:21 Eye Response: spontaneous(4). Motor Response: obeys commands(6). Verbal Response: sp4 oriented(5). Total: 15. NIH Stroke Scale Scores: 07:21 NIHSS Score: 0 sp4 ED Course: 05:30 Patient arrived in ED. jj6 05:30 Abran Saenz MD is Attending Physician. sp4 05:41 Triage completed. vc1 05:42 Arm band placed on left wrist. vc1 05:44 Patient has correct armband on for positive identification. Bed in low position. Call vc1 light in reach. Pulse ox on. NIBP on. 05:48 Kaylin Reed RN is Primary Nurse. vc1 06:13 XRAY Chest (1 view) In Process Unspecified. EDMS 07:17 Maintain EMS IV. Dressing intact. Good blood return noted. Site clean \T\ dry. Gauge \T\ lexy 6 site: 20G RFA. 07:49 Attending Physician role handed off by Abran Saenz MD ec2 07:49 Dario Woods MD is Attending Physician. ec2 07:57 CT Head Brain wo Cont In Process Unspecified. EDMS 08:04 SARS RAPID Sent. kc6 08:04 Influenza Screen (a \T\ B) Sent. kc6 08:18 Karina Fisher MD is Hospitalizing Provider. ec2 08:18 Hospitalizing Provider role handed off by Karina Fisher MD ec2 08:18 Catrachito Moreno MD is Hospitalizing Provider. ec2 08:44 Primary Nurse role handed off by Kaylin Reed RN jl7 08:58 Bela Pagan, ALISSON is Primary Nurse. kc6 09:25 Patient moved to MRI via stretcher. ph 09:25 No provider procedures requiring assistance completed. Patient admitted, IV remains in ph place. Administered Medications: 08:04 Drug: Ondansetron IVP 4 mg IVP once; over 2 minutes Route: IVP; Site: right forearm; kc6 08:36 Follow up: Response: No adverse reaction; Nausea is decreased; Vomiting decreased kc6 08:05 Drug: metoCLOPramide IVP 10 mg IVP once; over 1 to 2 minutes Route: IVP; Site: right [facility] forearm; 08:36 Follow up: Response: No adverse reaction; Nausea is decreased; Vomiting decreased kc6 08:05 Drug: NS 0.9% IV 1000 ml IV at 125 ml/hr continuous Route: IV; Rate: 125 ml/hr; Site: [facility] right forearm; 09:30 Follow up: Response: No adverse reaction; IV Status: Infusion continued upon admission; [facility] IV Intake: 1000ml 09:10 Drug: Meclizine PO 12.5 mg PO once Route: PO; [facility] 10:32 Follow up: Response: No adverse reaction kc6 Medication: 05:45 VIS not applicable for this client. vc1 Intake: 09:30 IV: 1000ml; Total: 1000ml. kc6 Outcome: 08:18 Decision to Hospitalize by Provider. ec2 12:36 Patient left the ED. kc6 NIH Stroke Scale - NIH Stroke Score Date: 11/09/2023 Time: 07:21 Total Score = 0 10. Dysarthria (speech clarity - read or repeat words) - 0(Normal) 11. Extinction and Inattention (visual/tactile/auditory/spatial/personal) - 0(No abnormality) 1a. Level of Consciousness (LOC) - 0(Alert) 1b. Level of Consciousness (LOC) (Month \T\ Age) - 0(Both) 1c. LOC Commands (Open \T\ Closes Eyes/Manager In Training) - 0(Both) 2. Best Gaze (Lateral Gaze Paresis) - 0(Normal) 3. Visual Field Loss - 0(No visual loss) 4. Facial Palsy - 0(Normal) 5a. Left Arm: Motor (10-second hold) - 0(No drift) 5b. Right Arm: Motor (10-second hold) - 0(No drift) 6a. Left Leg: Motor (5-second hold - always test supine) - 0(No drift) 6b. Right Leg: Motor (5-second hold - always test supine) - 0(No drift) 7. Limb Ataxia (finger/nose \T\ heel/hampton - test with eyes open) - 0(Absent) 8. Sensory Loss (pinprick arms/legs/face) - 0(Normal) 9. Best Language: Aphasia (description/naming/reading) - 0(No aphasia) Initials: sp4 Signatures: Dispatcher [employer] Carmela Montez RN RN ph Isabella Fajardo, RN RN jl7 Elsi Gardner jj6 Kaylin Reed RN RN vc1 Bela Pagan RN RN [id number] Abran Saenz MD MD sp4 Dario Woods MD MD ec2 Corrections: (The following items were deleted from the chart) 08:36 08:21 BP 160 / 69; Pulse 68bpm; Resp 18bpm; Pulse Ox 97%; Temp 97.2F; ph kc6
[2023-11-09 08:52] LABS: SARS-CoV-2 Antigen CONTROL BLUE LINE VIS/BG OK; SARS-CoV-2 Antigen Rapid Res Negative (Negative)
[2023-11-09] MEDS ORDERED: MECLIZINE HCL 12.5 MG TAB ONE (09:03)
[2023-11-09] MEDS: NA CHLORIDE 0.9% 1,000 ML IV SCH (09:51)
[2023-11-09] MEDS ORDERED: ONDANSETRON 4 MG/2 ML VIAL IV PRN (09:51)
--- NOTE | 2023-11-09 09:58 | RAD REPORT ---
EXAM DESCRIPTION: MRI - Brain Wo Cont - 11/09/2023 9:52 am CLINICAL HISTORY: dizziness/vertigo COMPARISON: Head Brain Wo Cont dated 11/09/2023 TECHNIQUE: Multi-sequence, multiplanar MR imaging of the brain was performed without contrast. FINDINGS: No intracranial hemorrhage, hydrocephalus or extra-axial fluid collections.Mild confluent T2/FLAIR hyperintensity in the periventricular and deep white matter is present compatible with chron ic microvascular ischemic changes. No edema or shift of midline structures. No findings to suspect br ain mass. DWI is negative for acute CVA. Midline structures are normally formed. Mastoid air cells and paranasal sinuses are clear. IMPRESSION: Negative for acute CVA or other acute intracranial process.
[2023-11-09] MEDS: ENOXAPARIN 30 MG/0.3 ML SQ SCH (11:00)
--- NOTE | 2023-11-09 12:33 | EKG ---
Test Date: 2023-11-09 Test Time: 05:59:01 [employer] Project Manager: MICHOACANO MEASUREMENT RESULTS: Intervals: Rate: 60 DC: 162 QRSD: 84 QT: 422 QTc: 422 [place]: P: 83 DC: 162 QRS: 43 T: 52 INTERPRETIVE STATEMENTS: Normal sinus rhythm Low voltage QRS Borderline ECG Compared to ECG 10/12/2022 13:08:42 Low QRS voltage now present Electronically Signed On 11-09-23 12:32:25 CDT by Tom Feliciano
[2023-11-09 13:33] VITALS: BMI 34.1
--- NOTE | 2023-11-09 15:13 | P.HP ---
Certification for Inpatient Patient admitted to: Observation With expected LOS: <2 Midnights Patient will require the following post-hospital care: None Practitioner: I am a practitioner with admitting privileges, knowledge of patient current condition, hospital course, and medical plan of care. Services: Services provided to patient in accordance with Admission requirements found in Title 42 Section 412.3 of the Code of Federal Regulations Patient History Date of Service: 11/09/23 Reason for admission: Dizziness, nausea History of Present Illness: 83-year-old female with history of hypertension, CAD with previous PCI, hyperlipidemia presents emergency department with chief complaint of dizziness, nausea. She reports that she has been having some dizziness on and off for the last 1 week but became acutely worse yesterday. She reports her symptoms are worse with movement does feel room spinning sensation. She was evaluated in the emergency department and her labs were significant for mild elevation in her creatinine 1.2, otherwise labs are unremarkable chest x-ray is negative for acute findings as well as CT of her head. Patient attempted ambulation with assistance and was too dizzy/weak to stand up or walk, ED provider wishes to admit patient under observation for further evaluation management. Allergies lisinopril Allergy (Verified 10/12/22 12:49) Cough Home Medications: Atorvastatin Calcium [Lipitor] 80 mg PO BEDTIME 02/18/17 Allopurinol 1 tab PO DAILY 08/20/22 Amitriptyline [Elavil*] 1 tab PO DAILY 08/20/22 Aspirin [Aspirin EC 81 MG] 81 mg PO DAILY #1 08/22/22 Lidocaine 4% Patch [Lidoderm 5% Patch*] 1 patch TOP DAILY patch 08/22/22 - Past Medical/Surgical History Diabetic: No -: Hypertension -: CAD, previous stent x2 -: Hyperlipidemia -: Gout -: Allergic rhinitis -: Former smoker -: cardiac stents x 2 2005 -: bilateral eye lens implant Psychosocial/ Personal History: Lives at home with her - Family History Mother Notes: " i am adopted" - Social History Smoking Status: Never smoker Alcohol use: No CD- Drugs: No Caffeine use: Yes Place of Residence: Home Review of Systems 10-point ROS is otherwise unremarkable General: Weakness, Malaise Neurological: Other (Dizziness, nausea) Physical Examination - Vital Signs Temperature: 97.2 F Blood Pressure: 158/61 Pulse: 75 Respirations: 16 Pulse Ox (%): 93 - Physical Exam General: Alert, In no apparent distress, Oriented x3 HEENT: Atraumatic, PERRLA, EOMI Neck: Supple, 2+ carotid pulse no bruit, No LAD Respiratory: Clear to auscultation bilaterally, Normal air movement Cardiovascular: Regular rate/rhythm, Normal S1 S2 Gastrointestinal: Normal bowel sounds Musculoskeletal: No tenderness Integumentary: No rashes Neurological: Normal speech, Normal strength at 5/5 x4 extr, Normal tone, Other (NIH-0) - Studies Laboratory Data (last 24 hrs) 11/09/23 11/09/23 11/09/23 07:15 07:15 07:15 WBC 10.70 Hgb 12.8 Hct 39.4 Plt Count 248 PT 10.9 INR 0.99 Sodium 140 Potassium 4.3 BUN 20 H Creatinine 1.20 H Glucose 119 H Magnesium 2.3 Total Bilirubin 0.5 AST 26 ALT 23 Alkaline Phosphatase 151 H Lipase 22 Microbiology Data (last 24 hrs): 11/09/23 08:01 Nasopharnyx Influenza Type A Antigen Screen - Final 11/09/23 08:01 Nasopharnyx Influenza Type B Antigen Screen - Final Assessment and Plan - Plan Assessment: Dizziness, nausea suspect BPPV Unsteady gait Hypertension Hyperlipidemia History of CAD with previous [id number] Plan: Dizziness, nausea suspect BPPV Unsteady gait MRI 11/08 negative for CVA or no acute findings PT consulted Continue as needed meclizine Gentle IV fluids overnight Reevaluate stability/dizziness in the morning Hypertension Hyperlipidemia History of CAD with previous [id number] Continue home medications DVT PPX:Lovenox Code status:Full Discharge Plan: Home Plan to discharge in: 24 Hours - Advance Directives Does patient have a Living Will: No Does patient have a Durable POA for Healthcare: No - Code Status/Comfort Care Code Status Assessed: Yes (Full code) Critical Care: No Time Spent Managing Pts Care (In Minutes): 70
[2023-11-09] MEDS: ATORVASTATIN 80 MG TAB PO SCH (21:40)
[2023-11-09] MEDS: MECLIZINE HCL 12.5 MG TAB PO PRN (21:41)
[2023-11-09] MEDS: MORPHINE 2 MG/ML SYR IV PRN (21:41)
[2023-11-09 23:42] VITALS: O2SAT 95
[2023-11-10] MEDS: AMITRIPTYLINE 25 MG TAB PO SCH (09:00)
[2023-11-10] MEDS: LIDOCAINE 4% PATCH TOP SCH (09:00)
[2023-11-10] MEDS: LOSARTAN POTASSIUM 50 MG TABLET PO SCH (09:12)
[2023-11-10] MEDS: ASPIRIN EC 81 MG TAB PO SCH (09:12)
[2023-11-10] MEDS: ACETAMINOPHEN 325 MG TABLET PO ONE (09:13)
[2023-11-10] MEDS: allopurinoL 100 MG TAB PO SCH (09:13)
[2023-11-10] MEDS: NA CHLORIDE 0.9% 500 ML IV ONE (10:52)
[2023-11-10 11:35] LABS: Absolute Basophils 0.1 K/uL (0-0.5); Absolute Eosinophils 0.4 K/uL (0-0.5); Absolute Lymphocytes (CBC) 1.3 K/uL (0.7-4.9); Absolute Monocytes 0.4 K/uL (0.1-1.3); Absolute Neutrophil 5.9 K/uL (1.8-8.0); Basophils % 0.7 % (0-1.3); Eosinophils % 4.6 % (0-4.4); Hematocrit 37.6 % (36.0-45.0); Hemoglobin 12.4 g/dL (12.0-15.0); Lymphocytes % 15.8 % (15.3-44.8); MCH 31.2 pg (27.0-35.0); MCV 94.7 fL (80-100); MPV 8.8 fL (7.6-11.3); Monocytes % 5.4 % (3.3-12.3); Neutrophils % 73.5 % (41.7-73.7); Platelets 249 thou/uL (152-406); RBC Red Blood Cell Count 3.97 M/uL (3.86-4.86); Red Cell Distribution Width 13.7 % (12.1-15.2)
[2023-11-10 11:52] LABS: Anion Gap 5.8 mEq/L (5.0-15.0); Magnesium 2.1 mg/dL (1.6-2.4); Potassium 3.8 mEq/L (3.5-5.1)
[2023-11-10 12:02] VITALS: BP 132/63; TEMP 97.2
--- NOTE | 2023-11-10 13:27 | P.DS ---
Admission Date: 11/09/23 Discharge Date: 11/10/23 Disposition: ROUTINE DISCHARGE Discharge Condition: GOOD Reason for Admission: Dizziness, nausea Brief History of Present Illness: 83-year-old female with history of hypertension, CAD with previous PCI, hyperlipidemia presents emergency department with chief complaint of dizziness, nausea. She reports that she has been having some dizziness on and off for the last 1 week but became acutely worse yesterday. She reports her symptoms are worse with movement does feel room spinning sensation. She was evaluated in the emergency department and her labs were significant for mild elevation in her creatinine 1.2, otherwise labs are unremarkable chest x-ray is negative for acute findings as well as CT of her head. Patient attempted ambulation with assistance and was too dizzy/weak to stand up or walk, ED provider wishes to admit patient under observation for further evaluation management. Hospital Course: Assessment: Dizziness, nausea suspect BPPV Orthostatic hypotension Unsteady gait Hypertension Hyperlipidemia History of CAD with previous [id number] Patient was admitted to the hospital under observation for dizziness/vertigo. CT of the head without contrast was negative for acute findings, subsequent MRI of the brain without contrast was also negative for CVA/stroke or other acute findings. She was evaluated by physical therapy who performed orthostatic vital signs and found her blood pressure to drop significantly while standing to 80 systolic. She was given 500 cc NS bolus and orthostatic vital signs were repeated and much better without drop in blood pressure or significant increase in heart rate. She is feeling better after the IV fluids, discussed taking [id number] as needed meclizine for vertigo symptoms. Consider outpatient ENT consultation if there is ongoing vertigo. Please continue home medications as prescribed Follow-up with her primary care doctor in 1 to 2 weeks He should observe fall precautions especially when feeling dizzy/lightheaded Change positions slowly to minimize chance of blood pressure dropping when standing/walking Vital Signs/Physical Exam: Temp Pulse Resp BP Pulse Ox 97.2 F 69 16 132/63 95 11/10/23 11:55 11/10/23 11:55 11/10/23 11:55 11/10/23 11:55 11/10/23 11:55 General: Alert, In no apparent distress, Oriented x3 HEENT: Atraumatic, PERRLA Neck: Supple, JVD not distended Respiratory: Clear to auscultation bilaterally, Normal air movement Cardiovascular: Regular rate/rhythm, Normal S1 S2 Gastrointestinal: Normal bowel sounds, No tenderness Musculoskeletal: No tenderness Integumentary: No rashes Neurological: Normal speech, Normal tone, Normal affect Laboratory Data at Discharge: WBC 8.10 thou/uL (4.3-10.9) 11/10/23 10:46 Hgb 12.4 g/dL (12.0-15.0) 11/10/23 10:46 Hct 37.6 % (36.0-45.0) 11/10/23 10:46 Plt Count 249 thou/uL (152-406) 11/10/23 10:46 PT 10.9 SECONDS (9.5-12.5) 11/09/23 07:15 INR 0.99 11/09/23 07:15 Sodium 140 mEq/L (136-145) 11/10/23 10:46 Potassium 3.8 mEq/L (3.5-5.1) 11/10/23 10:46 BUN 15 mg/dL (7-18) 11/10/23 10:46 Creatinine 1.21 mg/dL (0.55-1.02) H 11/10/23 10:46 Glucose 126 mg/dL (74-106) H 11/10/23 10:46 Magnesium 2.1 mg/dL (1.6-2.4) 11/10/23 10:46 Total Bilirubin 0.5 mg/dL (0.2-1.0) 11/09/23 07:15 AST 26 U/L (15-37) 11/09/23 07:15 ALT 23 U/L (13-56) 11/09/23 07:15 Alkaline Phosphatase 151 U/L (45-117) H 11/09/23 07:15 Lipase 22 U/L (13-75) 11/09/23 07:15 Home Medications: Atorvastatin Calcium [Lipitor] 80 mg PO BEDTIME 02/18/17 Allopurinol 100 mg PO DAILY 08/20/22 Amitriptyline [Elavil*] 25 mg PO DAILY 08/20/22 Aspirin [Aspirin EC 81 MG] 81 mg PO DAILY #1 08/22/22 Lidocaine 4% Patch [Lidoderm 5% Patch*] 1 patch TOP DAILY patch 08/22/22 Losartan Potassium 50 mg PO DAILY 11/09/23 Physician Discharge Instructions: Patient was admitted to the hospital under observation for dizziness/vertigo. CT of the head without contrast was negative for acute findings, subsequent MRI of the brain without contrast was also negative for CVA/stroke or other acute findings. She was evaluated by physical therapy who performed orthostatic vital signs and found her blood pressure to drop significantly while standing to 80 systolic. She was given 500 cc NS bolus and orthostatic vital signs were repeated and much better without drop in blood pressure or significant increase in heart rate. She is feeling better after the IV fluids, discussed taking [id number] as needed meclizine for vertigo symptoms. Consider outpatient ENT consultation if there is ongoing vertigo. Please continue home medications as prescribed Follow-up with her primary care doctor in 1 to 2 weeks He should observe fall precautions especially when feeling dizzy/lightheaded Change positions slowly to minimize chance of blood pressure dropping when standing/walking Diet: Regular Activity: Fall precautions Followup: NONE,NONE [Primary Care Provider] - 1-2 Weeks Time spent managing pt's care (in minutes): 30
[2023-11-10] MEDS ORDERED: ACETAMINOPHEN 325 MG TABLET PO PRN (15:00)
[2023-11-10] MEDS ORDERED: AMITRIPTYLINE 25 MG TAB PO SCH (21:00)
== END 2023-11-10 14:29 | disposition home or self-care (01) ==
LOC: ER 05:29 → ERHOLD 08:55 → 4TH 12:21
PROVIDERS: ADMIT Hospitalist; ATTEND Hospitalist
DX: R42 Dizziness and giddiness (principal); I10 Essential (primary) hypertension; I25.10 Atherosclerotic heart disease of native coronary artery without angina pectoris; E78.5 Hyperlipidemia, unspecified; R11.0 Nausea; R26.81 Unsteadiness on feet; Z11.52 Encounter for screening for COVID-19
CPT/HCPCS: 36415; 70450; 70551; 71045; 80048; 80076; 83690; 83735; 83880; 84439; 84443; 84484; 85025; 85610; 87804; 87811; 93005; 96361; 96374; 96375; 97112; 97116; 97161; 97530; 99285; G0378; J1650; J2001; J2270; J2405; J2765; J7030; J7040; J8597